=== PATIENT | female | born 1980 | race Caucasian/White ===

== ENCOUNTER 2019-08-24 17:05 | Inpatient (IN) | payer MEDICAID ==
[~2019-08-24] VITALS: Ht 165.1 cm; Wt 81.6 kg
[2019-08-24 19:00] VITALS: BP 123/75
[2019-08-24] MEDS ORDERED: INSU100V13 SQ (20:39)
[2019-08-24] MEDS ORDERED: LIDO:MAALOX 1:1 20 ML SINGLE DOSE. PO PRN (21:15)
[2019-08-24] MEDS: AZTREONAM IV Push 2 GM VIAL. IVP SCH ×2 (21:30→23:24)
[2019-08-24] MEDS: INSULIN GLARGINE SYRINGE. SQ SCH (21:35)
[2019-08-24] MEDS ORDERED: VANCOMYCIN 2 GM in IV NORMAL SALINE 500ML BAG 500 ML IV ONE (22:00)
[2019-08-24] MEDS: IV NORMAL SALINE 1000ML BAG 1,000 ML IV SCH (23:00)
[2019-08-24 23:30] VITALS: BP 152/95
[2019-08-25] MEDS: VANCOMYCIN PER PHARMACY MC PRN ×3 (01:17→14:58)
--- NOTE | 2019-08-25 01:17 | NUR ---
Pharmacy Vancomycin Dosing Note S:Consulted to monitor and dose vancomycin started 08/24/19. O:GLENIS KAUR is a 39 year old F with Sepsis . Height: 5 feet, 5 inches Weight: 74.588636 kg [place] Body Weight: 57.00 Adjusted Body Weight: 64.12 Dosing Weight: Actual Other Antibiotics: AZTREONAM LABS: Last BUN: 23 Last Creatinine: 1.2 Creatinine Clearance: 64 mL/min Last WBC: 9.4 Last Procalcitonin: Tmax (past 24 hours): Microbiology: I/O: Drug Levels: Last level: on at Last dose given 08/24/19 at 2100 Vancomycin Dosing: Loading Dose: 2000 mg x1 Dosing Weight: Actual Target Trough: 15-20 A: Based on: WT AND CRCL P: 1. Begin Vancomycin 1000 mg IV q12h 2. Follow up Trough level on 08/26/19 at 0830 3. Pharmacy will continue to monitor, follow and adjust therapy as needed. JL PATTON RPH, 08/25/19116 Signed: 08/25/19 at 116 by JL PATTON RPH PHA
[2019-08-25 03:20] VITALS: BP 112/70
[2019-08-25] MEDS: ONDANSETRON PF 4 MG/2 ML VIAL. IVP PRN ×3 (03:30→22:40)
[2019-08-25] MEDS: fentaNYL PF VIAL 100 MCG/2 ML VIAL IVP PRN ×3 (03:33→08:27)
[2019-08-25] MEDS: AZTREONAM IV Push 2 GM VIAL. IVP SCH ×4 (05:56→22:29)
[2019-08-25 07:21] VITALS: BP 136/80
[2019-08-25] MEDS: PANTOPRAZOLE 40 MG TABLET.DR. PO SCH (07:30)
[2019-08-25] MEDS ORDERED: DEXTROSE 50% 25 GM / 50ML DISP.SYRIN. IV PRN (09:00)
--- NOTE | 2019-08-25 09:12 | PN ---
DATE: 08/25/2019 SUBJECTIVE: The patient is resting, slightly sitting up in bed, having had recurrent bouts of nausea and vomiting. She also complained of right upper quadrant pain that radiates to the back, although her lower abdominal pain seemed to be much better controlled. PHYSICAL EXAMINATION: GENERAL: When I examined her this morning, she looked somewhat pale. No jaundice, cyanosis, or thyromegaly. No jugular venous distention. No lower limb edema. VITAL SIGNS: Her heart rate was 98, blood pressure was 136/80, temperature was 98.0, respiratory rate was 18, and oxygen saturation was 97%. HEAD, EYES, EARS, NOSE, AND THROAT: Normocephalic and atraumatic. NECK: Supple. HEART: Showed normal first and second heart sounds. No gallop, rub, or murmur. CHEST: Clear to auscultation. No crepitation or rhonchi. ABDOMEN: Distended, soft, and nontender. No guarding or rigidity. No organomegaly. All hernial orifices intact. Bowel sounds normal. NEUROLOGIC: She is awake, alert, and responding appropriately. She moves all extremities without difficulty. LABORATORY DATA: She has no lab work unfortunately ordered. ASSESSMENT AND PLAN: In summary, this is a 39-year-old female patient with type 1 diabetes, was admitted with emphysematous cystitis. We will continue with IV antibiotic and we did consult the Infectious Disease to assist with management. I will consult also the urologist, and we will continue to monitor her blood sugars and adjust insulin as needed. Continue with pain management and antiemetic therapy. HANY MILLER MD DR: SVETLANA/omar JOB#: [id number] / [id number]
--- NOTE | 2019-08-25 09:14 | PDOC ---
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 Rocephin hypotension/syncope UTI - POA 08/24 at [facility] ? pancreatitis with lipase 656 Type 1 Dm Poor dentition Plan Plan of Care Cont Vanc and Aztreonam but adjust dose q8 F/u labs and cults Await urology eval [facility] notes reviewed Thank you D/w Dr. Rivero # [id number] JULIA OH MD Aug 25, 2019 09:14
--- NOTE | 2019-08-25 09:14 | HP ---
ADMIT DATE: HISTORY OF PRESENT ILLNESS: The patient is a 39-year-old female patient who was seen yesterday at [facility] Emergency Room, apparently complaining of pain in her lower abdomen, mostly in the left lower quadrant. Apparently, she is known to have ovarian cyst and according to her, there were plans for her to have hysterectomy; however, she apparently was found to be septic with lactic acid of 2.9, although her total white cell count was normal, has a UTI with more than 40 wbc's and too many bacteria. Her lipase was also found to be high at 656. The CT scan of the abdomen and pelvis showed that she has gas within the urinary bladder with emphysematous cystitis progressed since the prior examination, finding localized along the left lateral bladder wall, circumferential wall thickening is noted with pericystic and inflammatory changes compatible with cystitis. Urology consultation was recommended and the patient was started on IV antibiotic in the form of levofloxacin. SHE IS ALLERGIC TO PENICILLIN AND CEFTRIAXONE. She was also started on vancomycin as well as aztreonam and was transferred to [facility] to consult the Urology team as well as Infectious Disease team. PAST MEDICAL HISTORY: Significant for type 1 diabetes mellitus, on Levemir and NovoLog insulin. She has severe acid reflux, has had before ureteropelvic junction obstruction for which she underwent pyeloplasty. She has also mild cataracts. PAST SURGICAL HISTORY: Significant for cholecystectomy, pyeloplasty, tubal ligation, uterine ablation and also had had a colonoscopy. ALLERGIES: SHE IS ALLERGIC TO PENICILLIN, CEFTRIAXONE, METOCLOPRAMIDE, AND MORPHINE WELL COMPAZINE. MEDICATIONS: She is currently on following medications: She is on Levemir and NovoLog as well as Pepcid. FAMILY HISTORY: She has 6 brothers, 2 older and 3 younger and all healthy. Her father is still alive and has metastatic lung cancer for which she is getting chemotherapy and radiation treatment. Her mother is still alive and has hypertension, hyperlipidemia. SOCIAL HISTORY: She is , has 1 son and 2 daughters. She does not smoke, drink alcohol or use any recreational drugs. She is a traveling registered nurse. REVIEW OF SYSTEMS: The patient denied any blurring of vision, glaucoma. She does have cataract, did not require any surgical intervention, but denied any glaucoma or macular degeneration. Denied any earache, tinnitus or sensorineural deafness. Denied any nosebleeds, stuffy nose or postnasal drip. Denied any sore throat, sore tongue, toothache, hoarseness of voice or difficulty swallowing. Denied any nausea, vomiting, diarrhea or constipation. Denied any hematemesis, melena or hematochezia. Denied any dysuria, frequency or hematuria. She denied any chest pain, shortness of breath, orthopnea or paroxysmal nocturnal dyspnea. PHYSICAL EXAMINATION: GENERAL: On arrival to the Emergency Room, the patient looked well and was clearly in no apparent respiratory distress. No pallor, jaundice, cyanosis or thyromegaly. No jugular venous distention. No limb edema. VITAL SIGNS: Her heart rate was 117, blood pressure was 126/79, temperature was 98, respiratory rate was 20, and oxygen saturation was 99% on room air. HEAD, EYES, EARS, NOSE AND THROAT: Showed normocephalic, atraumatic. NECK: Supple. HEART: Showed normal first and second heart sounds. No gallop or murmur. CHEST: Clear to auscultation. No crepitation or rhonchi. ABDOMEN: Distended, soft with tenderness mostly in the left lower quadrant. There is no guarding or rigidity. No organomegaly. All hernial orifice intact. Bowel sounds normal. NEUROLOGIC: She was awake, alert, responding appropriately. All cranial nerves intact. EXTREMITIES: She moves extremities without difficulty. She ambulates without assistance or assistive devices. LABORATORY DATA: Her lab work showed a white cell count 9400. Her hemoglobin was 12, hematocrit 36, MCV 87 and platelet count of 623,000. Her serum sodium was 133, potassium 4.7, chloride 97, bicarbonate 27, anion gap of 9, BUN 23, creatinine 1.2, estimated GFR was 50 mL per minute. Her glucose was 221. Lactic acid was 2.9, calcium was 9.6, magnesium was 1.9. Total bilirubin, AST, ALT, alkaline phosphatase were slightly elevated. Total protein was 7.9, albumin was 2.7. Her serum lipase was 656. The patient underwent transabdominal and transvaginal sonographic imaging of the pelvis, which showed that the patient has 2.1 cm x 2 cm complex left ovarian cyst progressive, possibly hemorrhagic in etiology. A small uterine fibroid obscured right ovary. A note was made that the hypoechoic focus within the endometrium on the prior exam is not seen on this examination. She did have also CT scan of the abdomen and pelvis, which showed that the patient has gas within the urinary bladder with emphysematous cystitis progressed since the last time. Findings are localized along the left lateral bladder wall, circumferential wall thickening is noted with pericystic and inflammatory changes compatible with cystitis. Therefore, the patient was transferred to [facility] to continue with IV antibiotic. Continue to monitor her blood sugar and adjust her insulin as needed. Consult the Infectious Disease as well as the Urology team and decide on further management accordingly. HAYN MILLER MD DR: SVETLANA/omar JOB#: [id number] / [id number]
[2019-08-25] MEDS: VANCOMYCIN 1 GM in IV NORMAL SALINE 250ML 250 ML IV SCH ×2 (09:19→20:58)
[2019-08-25 09:20] LABS: HEMATOCRIT 36.7 % (36.0-47.0); HEMOGLOBIN 12.1 g/dL (12.0-15.5); RED BLOOD COUNT 4.12 x10^6/uL (3.50-5.40); RED CELL DISTRIBUTION WIDTH 13.2 % (11.5-14.5); WHITE BLOOD COUNT 8.6 x10^3/uL (4.0-11.0)
[2019-08-25 10:04] LABS: CALCIUM 8.8 mg/dL (8.5-10.1); CREATININE 0.7 mg/dL (0.6-1.0); GFR 93.2; POTASSIUM 4.7 mmol/L (3.5-5.1)
[2019-08-25 10:10] LABS: ALBUMIN 2.6 g/dL (3.4-5.0); ALBUMIN/GLOBULIN RATIO 0.6 (1.0-1.7); TOTAL BILIRUBIN 0.2 mg/dL (0.2-1.0); TOTAL PROTEIN 6.7 g/dL (6.4-8.2)
--- NOTE | 2019-08-25 10:57 | CONS ---
DATE OF CONSULTATION: 08/25/2019 LOCATION: The patient is in room #670. REQUESTING PHYSICIAN: Dr. Rivero. REASON FOR CONSULTATION: Pancreatitis. HISTORY OF PRESENT ILLNESS: The patient is a 39-year-old female with a history of type 1 diabetes, does have a history of urinary tract infections as well as complicated left ovarian cyst and is actually scheduled to undergo a hysterectomy. She began to have some pain in her left side. Yesterday, she thought it was more associated with the cyst, so she presented to [facility] for evaluation. She underwent a CT scan of the abdomen and pelvis, so she has some emphysematous changes in her bladder with some gas. She states this was noted prior about 07/14, but had since worsened. About 07/14, she received some oral antibiotics. Her urine collected at [facility] was concerning for urinary tract infection. Additionally, she had a lipase level of 656. She had not been having any fevers or chills, but she did vomit this morning. She feels this is secondary to pain medication. She was given a dose of vancomycin, Levaquin and she was transferred to [facility] where she has been continued on vancomycin and aztreonam has been ordered. Currently, she is sitting upright in bed. Denies any gross fevers, chills or sweats. She has some chronic seasonal allergy type issues. Denies any sore throat. She denies any change in her urine. No blood in her urine. No cramps and diarrhea. Denies any generalized rashes. PAST MEDICAL HISTORY: Positive for type 1 diabetes, history of recurrent urinary tract infections, gastroesophageal reflux disease, and uterine cyst. PAST SURGICAL HISTORY: Positive for cholecystectomy, x 3, uterine ablation, also had ureteropelvic surgery as a child and tubal ligation. REVIEW OF SYSTEMS: Otherwise negative except for what is mentioned above. ALLERGIES: LISTED PENICILLIN, WHICH CAUSED JOHNSTON-MIKAELA SYNDROME. She had tolerated Rocephin, but when the last time she received a dose, she dropped her blood pressure and had a syncopal episode. METOCLOPRAMIDE, MORPHINE, AND PROCHLORPERAZINE ARE ALSO LISTED. SOCIAL HISTORY: No tobacco. She works as a nurse. Denies any ill contacts recently. No pets at home. FAMILY HISTORY: Noncontributory. CT scan reviewed in history of present illness with emphysematous changes. She also had a pelvic sonogram, showed a 2.1 x 2 cm complex left ovarian cyst, possibly hemorrhagic, small uterine fibroid, obscured right ovary. PHYSICAL EXAMINATION: VITAL SIGNS: She is afebrile, pulse 98, respirations 18, blood pressure 136/80, satting 97% on room air. CONSTITUTIONAL: She is alert. She is cooperative. She looks little tired, but she is in no acute distress. HEENT: Pupils are equal and reactive. She had normal conjunctivae. Oral cavity, pharynx, she has poor dentition, otherwise clear. NECK: Supple. No JVD. LUNGS: Decreased in the bases. HEART: S1, S2. ABDOMEN: Mildly obese, soft. Decreased bowel sounds. EXTREMITIES: Without clubbing or cyanosis. No gross edema. SKIN: Warm to touch without signs of generalized rash. NEUROLOGICAL: She is nonfocal and appropriate. LABORATORY VALUES: White count was 9.4, hemoglobin 12.3, platelets of 623 with 64% neutrophils and 28% lymphs. Glucose was 221. Lactic was 2.9. Creatinine was 1.2. AST 25, ALT 19, lipase was 656. Urinalysis concerning for urinary tract infection. IMPRESSION: 1. Emphysematous cystitis. 2. ANTIBIOTIC ALLERGIES, PENICILLIN CAUSED JOHNSTON-MIKAELA, ROCEPHIN CAUSED HYPOTENSION AND SYNCOPE. 3. Urinary tract infection present on admission on 08/24 at [facility]. 4. Questionable pancreatitis with lipase elevation at 656, but no mention on the CAT scan. 5. Type 1 diabetes. 6. Poor dentition. RECOMMENDATIONS: For now, continue the vancomycin as well as aztreonam, but adjust the dose to q.8 hours of the aztreonam. Follow up labs, cultures, await urological evaluation. [facility] notes were reviewed. Discussed with Dr. Rivero. Thank you for allowing me to participate in the patient's care. If you have any questions, please do not hesitate to contact me. JULIA OH MD DR: MEDHAT/omar JOB#: [id number] / [id number]
[2019-08-25 11:04] VITALS: BP 159/97
[2019-08-25] MEDS: HYDROmorphone 2 MG/ML VIAL IVP PRN ×4 (11:08→22:39)
--- NOTE | 2019-08-25 11:34 | PDOC2 ---
CONSULT Date of Consult Date of Consult DATE: 08/25/19 TIME: 11:32 Reason for Consult Reason for Consult: pancreatitis/possible colo-vesical fistula Current Medications Current Medications Current Medications Vancomycin HCl (Vanco Per Pharmacy) 1 each PRN DAILY PRN MC SEE COMMENTS Last administered on 08/25/19at 01:17; Start 08/24/19 at 21:15 Aztreonam (Azactam) 2 gm Q6HRS IVP Last administered on 08/25/19at 05:56; Start 08/24/19 at 21:30; Stop 08/25/19 at 09:04; Status DC Multi-Ingredient Mouthwash/Gargle (Gi Cocktail) 30 ml PRN QID PRN PO heartburn; Start 08/24/19 at 21:15 Pantoprazole Sodium (Protonix) 40 mg DAILYAC PO ; Start 08/25/19 at 07:30 Fentanyl Citrate (Fentanyl 2ml Vial) 50 mcg PRN Q2HR PRN IVP PAIN Last administered on 08/25/19at 08:27; Start 08/24/19 at 21:15 Insulin Glargine (Lantus Syringe) 10 unit QHS SQ Last administered on 08/24/19at 21:35; Start 08/24/19 at 21:00 Vancomycin HCl 2 gm/Sodium Chloride 500 ml @ 250 mls/hr 1X ONCE IV Last administered on 08/24/19at 21:00; Start 08/24/19 at 22:00; Stop 08/24/19 at 23:59; Status DC Vancomycin HCl 1 gm/Sodium Chloride 250 ml @ 250 mls/hr Q12H IV Last ad ministered on 08/25/19at 09:19; Start 08/25/19 at 09:00 Vancomycin HCl (Vancomycin Trough Level) 1 each 1X ONCE MC ; Start 08/26/19 at 08:30; Stop 08/26/19 at 08:31 Sodium Chloride 1,000 ml @ 100 mls/hr Q10H IV Last administered on 08/24/19at 23:00; Start 08/25/19 at 01:00 Ondansetron HCl (Zofran) 4 mg PRN Q6HRS PRN IVP NAUSEA/VOMITING 1ST CHOICE Last administered on 08/25/19at 08:59; Start 08/25/19 at 03:30 Insulin Human Lispro (HumaLOG) 0-9 UNITS TIDWMEALS SQ ; Start 08/25/19 at 12:00 Dextrose (Dextrose 50%-Water Syringe) 12.5 gm PRN Q15MIN PRN IV SEE COMMENTS; Start 08/25/19 at 09:00 Aztreonam (Azactam) 2 gm Q8HRS IVP ; Start 08/25/19 at 14:00 Hydromorphone HCl (Dilaudid) 0.4 mg PRN Q3HRS PRN IVP MODERATE TO SEVERE PAIN Last administered on 08/25/19at 11:08; Start 08/25/19 at 09:15 Active Scripts Active Reported Levemir (Insulin Detemir) 100 Unit/1 Ml Vial 25 Units SQ QHS Allergies Allergies: Coded Allergies: Penicillins (Verified Allergy, Severe, Fonseca-Mati syndrome, 08/24/19) ceftriaxone (Verified Allergy, Severe, 08/24/19) metoclopramide (Verified Allergy, Intermediate, hallucination, 08/24/19) morphine (Verified Allergy, Intermediate, hives, 08/24/19) prochlorperazine (Verified Adverse Reaction, Intermediate, 08/24/19) Vitals VITALS Vital Signs Date Time Temp Pulse Resp B/P (MAP) Pulse Ox O2 Delivery O2 Flow Rate FiO2 08/25/19 11:08 Room Air 08/25/19 11:04 97.6 114 20 159/97 (117) 100 97.6 Labs Labs Laboratory Tests Test 08/24/19 20:50 08/25/19 09:15 Glucose (Fingerstick) 348 mg/dL (70-99) White Blood Count 8.6 x10^3/uL (4.0-11.0) Red Blood Count 4.12 x10^6/uL (3.50-5.40) Hemoglobin 12.1 g/dL (12.0-15.5) Hematocrit 36.7 % (36.0-47.0) Mean Corpuscular Volume 89 fL (79-100) Mean Corpuscular Hemoglobin 29 pg (25-35) Mean Corpuscular Hemoglobin Concent 33 g/dL (31-37) Red Cell Distribution Width 13.2 % (11.5-14.5) Platelet Count 507 x10^3/uL (140-400) Sodium Level 137 mmol/L (136-145) Potassium Level 4.7 mmol/L (3.5-5.1) Chloride Level 102 mmol/L (98-107) Carbon Dioxide Level 25 mmol/L (21-32) Anion Gap 10 (6-14) Blood Urea Nitrogen 14 mg/dL (7-20) Creatinine 0.7 mg/dL (0.6-1.0) Estimated GFR (Cockcroft-Gault) 93.2 BUN/Creatinine Ratio 20 (6-20) Glucose Level 421 mg/dL (70-99) Calcium Level 8.8 mg/dL (8.5-10.1) Total Bilirubin 0.2 mg/dL (0.2-1.0) Aspartate Amino Transf (AST/SGOT) 25 U/L (15-37) Alanine Aminotransferase (ALT/SGPT) 18 U/L (14-59) Alkaline Phosphatase 170 U/L (46-116) Total Protein 6.7 g/dL (6.4-8.2) Albumin 2.6 g/dL (3.4-5.0) Albumin/Globulin Ratio 0.6 (1.0-1.7) Lipase 362 U/L (73-393) Laboratory Tests Test 08/24/19 20:50 08/25/19 09:15 Glucose (Fingerstick) 348 mg/dL (70-99) White Blood Count 8.6 x10^3/uL (4.0-11.0) Red Blood Count 4.12 x10^6/uL (3.50-5.40) Hemoglobin 12.1 g/dL (12.0-15.5) Hematocrit 36.7 % (36.0-47.0) Mean Corpuscular Volume 89 fL (79-100) Mean Corpuscular Hemoglobin 29 pg (25-35) Mean Corpuscular Hemoglobin Concent 33 g/dL (31-37) Red Cell Distribution Width 13.2 % (11.5-14.5) Platelet Count 507 x10^3/uL (140-400) Sodium Level 137 mmol/L (136-145) Potassium Level 4.7 mmol/L (3.5-5.1) Chloride Level 102 mmol/L (98-107) Carbon Dioxide Level 25 mmol/L (21-32) Anion Gap 10 (6-14) Blood Urea Nitrogen 14 mg/dL (7-20) Creatinine 0.7 mg/dL (0.6-1.0) Estimated GFR (Cockcroft-Gault) 93.2 BUN/Creatinine Ratio 20 (6-20) Glucose Level 421 mg/dL (70-99) Calcium Level 8.8 mg/dL (8.5-10.1) Total Bilirubin 0.2 mg/dL (0.2-1.0) Aspartate Amino Transf (AST/SGOT) 25 U/L (15-37) Alanine Aminotransferase (ALT/SGPT) 18 U/L (14-59) Alkaline Phosphatase 170 U/L (46-116) Total Protein 6.7 g/dL (6.4-8.2) Albumin 2.6 g/dL (3.4-5.0) Albumin/Globulin Ratio 0.6 (1.0-1.7) Lipase 362 U/L (73-393) Assessment/Plan Assessment/Plan Pancreatitis- s/p efren, clinically resolved Abnl Ct scan- with dysuria, colovesical fistula possible,. urology consult to further asses. colonoscopy to assess for Crohns, diverticulitis, and/or colon cancer if fistula confirmed. SYLVESTER BRADSHAW MD Aug 25, 2019 11:34
[2019-08-25] MEDS: INSULIN LISPRO 300 UNITS/3 ML VIAL. SQ SCH ×2 (11:52→17:00)
[2019-08-25] MEDS: IV NORMAL SALINE 1000ML BAG 1,000 ML IV SCH ×2 (11:53→21:01)
--- NOTE | 2019-08-25 11:54 | CONS ---
DATE OF CONSULTATION: 08/25/2019 REFERRING PHYSICIAN: Dr. Rivero. REASON FOR CONSULTATION: Pancreatitis and possible colovesical fistula. HISTORY OF PRESENT ILLNESS: A 39-year-old female with past medical history significant for cholecystectomy, , tubal ligation as well as uterine ablation, hemorrhagic cyst and has diabetes who is seen with episode of pancreatitis. Biochemical enzymes were elevated as well most of her pain was suprapubic in nature, subsequently returned to normal. She is a nondrinker, nonsmoker. Prior to cholecystectomy, no abnormalities were noted within the biliary tree or pancreas. She is also noted to have air in the wall of her urinary bladder and she has been passing air with urination for the past week or so. There is no family history of Crohn's, diverticulitis or colon cancer. Denies any change in bowel habits. With ongoing symptoms, she requests additional evaluation. PAST MEDICAL HISTORY: Diabetes, cholecystectomy, , tubal ligation, uterine ablation. MEDICATIONS: Include vancomycin, aztreonam, insulin, pantoprazole. SOCIAL HISTORY: She is nonsmoker, nondrinker. FAMILY HISTORY: Noncontributory. REVIEW OF SYSTEMS: As per records. PHYSICAL EXAMINATION: GENERAL: Reveals a well-nourished, well-developed female who is alert, cooperative, in no acute distress. VITAL SIGNS: Temperature 97.8, pulse 114, respiratory rate 20, blood pressure is 159/97. HEENT: Normocephalic, atraumatic head. Pupils and extraocular muscles are not tested. Sclerae anicteric. NECK: Supple. LUNGS: Clear. CARDIOVASCULAR: Reveals an S1, S2 without S3, S4 or appreciable murmur. ABDOMEN: Reveals a soft abdomen, normal bowel sounds, without appreciable hepatosplenomegaly with multiple surgical incisions being noted and suprapubic tenderness. EXTREMITIES: Reveal no cyanosis, clubbing or edema. LABORATORY STUDIES: Sodium 137, potassium 4.7, chloride 102, bicarbonate 25, BUN 14, creatinine 0.7, glucose 421, calcium 8.8, total bilirubin 0.2, AST of 25, ALT of 18, alkaline phosphatase 170, total protein 6.7, albumin 2.8, lipase of 362 today. Hemoglobin 12.1, hematocrit 36.7, white count 8.8, platelet count 507,000. CT scan reveals emphysematous, inflammation of the urinary bladder as well as possible pancreatitis. IMPRESSION: 1. Pancreatitis, status post cholecystectomy with diabetes, most likely is multifactorial in etiology and apparently has clinically resolved at this time. 2. Possible colovesical fistula with abnormal CT scan and recurrent polymicrobial UTIs. We will recommend Urology consultation for possible cystoscopy, fistula was confirmed and colonoscopy for surgery to assess for diverticulitis, colon cancer, and Crohn's disease will be pursued. SYLVESTER BRADSHAW MD DR: EDGARD/nts JOB#: [id number] / [id number]
[2019-08-25 15:00] VITALS: BP 141/77
[2019-08-25] MEDS: diphenhydrAMINE 50 MG/ML VIAL IVP PRN ×2 (15:29→20:15)
[2019-08-25] MEDS: LACTOBACILLUS RHAMNOSUS GG 1 CAPSULE. PO SCH (21:02)
[2019-08-25] MEDS: INSULIN GLARGINE SYRINGE. SQ SCH (21:04)
[2019-08-25 22:45] VITALS: BP 151/79
[2019-08-26] MEDS: diphenhydrAMINE 50 MG/ML VIAL IVP PRN ×4 (02:56→21:56)
[2019-08-26] MEDS: HYDROmorphone 2 MG/ML VIAL IVP PRN ×5 (03:00→21:51)
[2019-08-26 03:08] VITALS: BP 135/78
[2019-08-26] MEDS: AZTREONAM IV Push 2 GM VIAL. IVP SCH ×3 (05:36→21:58)
[2019-08-26 07:00] VITALS: BP 131/70
--- NOTE | 2019-08-26 07:49 | PDOC ---
Infectious Disease Note Subjective Subjective No F/C but + N/V and left ovary pain Normal BMs and urinating ok No Rash/itch/SOA ROS ROS o/w neg Vital Sign Vital Signs Vital Signs Date Time Temp Pulse Resp B/P (MAP) Pulse Ox O2 Delivery O2 Flow Rate FiO2 08/26/19 07:00 97.7 99 18 131/70 (90) 95 Room Air 97.7 Physical Exam PHYSICAL EXAM CONSTITUTIONAL: She is alert. She is cooperative. She looks little tired still, but she is in no acute distress. HEENT: Pupils are equal and reactive. She had normal conjunctivae. Oral cavity, pharynx, she has poor dentition, otherwise clear. NECK: Supple. No JVD. LUNGS: Decreased in the bases. HEART: S1, S2. ABDOMEN: Mildly obese, soft. Decreased bowel sounds. Tender in LLQ - no guard EXTREMITIES: Without clubbing or cyanosis. No gross edema. SKIN: Warm to touch without signs of generalized rash. NEUROLOGICAL: She is nonfocal and appropriate. Labs Lab Laboratory Tests Test 08/25/19 07:47 08/25/19 09:15 08/25/19 11:42 08/25/19 15:23 Glucose (Fingerstick) 362 mg/dL (70-99) 374 mg/dL (70-99) 169 mg/dL (70-99) White Blood Count 8.6 x10^3/uL (4.0-11.0) Red Blood Count 4.12 x10^6/uL (3.50-5.40) Hemoglobin 12.1 g/dL (12.0-15.5) Hematocrit 36.7 % (36.0-47.0) Mean Corpuscular Volume 89 fL (79-100) Mean Corpuscular Hemoglobin 29 pg (25-35) Mean Corpuscular Hemoglobin Concent 33 g/dL (31-37) Red Cell Distribution Width 13.2 % (11.5-14.5) Platelet Count 507 x10^3/uL (140-400) Sodium Level 137 mmol/L (136-145) Potassium Level 4.7 mmol/L (3.5-5.1) Chloride Level 102 mmol/L (98-107) Carbon Dioxide Level 25 mmol/L (21-32) Anion Gap 10 (6-14) Blood Urea Nitrogen 14 mg/dL (7-20) Creatinine 0.7 mg/dL (0.6-1.0) Estimated GFR (Cockcroft-Gault) 93.2 BUN/Creatinine Ratio 20 (6-20) Glucose Level 421 mg/dL (70-99) Calcium Level 8.8 mg/dL (8.5-10.1) Total Bilirubin 0.2 mg/dL (0.2-1.0) Aspartate Amino Transf (AST/SGOT) 25 U/L (15-37) Alanine Aminotransferase (ALT/SGPT) 18 U/L (14-59) Alkaline Phosphatase 170 U/L (46-116) Total Protein 6.7 g/dL (6.4-8.2) Albumin 2.6 g/dL (3.4-5.0) Albumin/Globulin Ratio 0.6 (1.0-1.7) Lipase 362 U/L (73-393) Test 08/25/19 16:59 08/25/19 20:29 Glucose (Fingerstick) 177 mg/dL (70-99) 323 mg/dL (70-99) Objective Assessment Emphysematous cystitis ? colovesical fistula per GI Abx allergies - PCN - Jad. Rocephin hypotension/syncope UTI - POA 08/[address] [facility] - GNR -d/w [facility] this am ? pancreatitis with lipase 656 - improved 08/25 Type 1 Dm Poor dentition Plan Plan of Care Cont Vanc and Aztreonam but adjust dose q8 Redose Levoflox times one with GNR in urine and uncertain ID F/u labs and cults Await urology eval D/w [facility] this am D/w JULIA Moreno MD Aug 26, 2019 07:49
[2019-08-26] MEDS: IV NORMAL SALINE 1000ML BAG 1,000 ML IV SCH ×3 (08:00→17:00)
[2019-08-26 08:47] LABS: CALCIUM 8.6 mg/dL (8.5-10.1); CREATININE 0.6 mg/dL (0.6-1.0); GFR 111.3; POTASSIUM 4.2 mmol/L (3.5-5.1)
[2019-08-26 08:52] LABS: VANC TR 10.1 mcg/mL (10.0-20.0)
[2019-08-26] MEDS: VANCOMYCIN PER PHARMACY MC PRN ×2 (09:47→09:51)
--- NOTE | 2019-08-26 09:49 | NUR ---
Pharmacy Vancomycin Dosing Note S:Consulted to monitor and dose vancomycin started 08/24/19. O:GLENIS KAUR is a 39 year old F with Sepsis . Height: 5 feet, 5 inches Weight: 82.175449 kg [place] Body Weight: 57.00 Adjusted Body Weight: 65.96 Dosing Weight: Actual Other Antibiotics: AZTREONAM LABS: Last BUN: 14 Last Creatinine: 0.6 Creatinine Clearance: 138 mL/min Last WBC: 8.6 Last Procalcitonin: Tmax (past 24 hours): 98 Microbiology: Pending I/O: 900/ 2 voids Drug Levels: Last Trough level: 10.1 on 08/26/19 at 0830 Last dose given 08/25/19 at 0919 Vancomycin Dosing: Loading Dose: 2000 mg x1 Dosing Weight: Actual Target Trough: 15-20 A: Based on: LEVEL P: 1. Change Vancomycin 1000 mg IV q8H 2. Follow up Trough level NEEDED 3. Pharmacy will continue to monitor, follow and adjust therapy as needed. TRIXIE GRAHAM [facility], 08/26/19 0944
[2019-08-26] MEDS: VANCOMYCIN 1 GM in IV NORMAL SALINE 250ML 250 ML IV SCH ×2 (10:00→17:51)
[2019-08-26] MEDS: ONDANSETRON PF 4 MG/2 ML VIAL. IVP PRN ×3 (10:16→21:54)
[2019-08-26] MEDS: PANTOPRAZOLE 40 MG TABLET.DR. PO SCH (10:17)
[2019-08-26] MEDS: LACTOBACILLUS RHAMNOSUS GG 1 CAPSULE. PO SCH ×2 (10:17→21:57)
[2019-08-26] MEDS: INSULIN LISPRO 300 UNITS/3 ML VIAL. SQ SCH ×3 (10:30→17:58)
[2019-08-26 11:03] VITALS: BP 124/71
--- NOTE | 2019-08-26 11:28 | PDOC ---
G I PROGRESS NOTE Reason for Follow-up abd pain/dysuria Subjective No new complaints Physical Exam Lungs clear CV S1 S2 ABD +BS, soft, + suprapubic tenderness to palpation Review of Relevant I have reviewed the following items katrin (where applicable) has been applied. Labs Laboratory Tests Test 08/24/19 20:50 08/25/19 07:47 08/25/19 09:15 08/25/19 11:42 Glucose (Fingerstick) 348 mg/dL (70-99) 362 mg/dL (70-99) 374 mg/dL (70-99) White Blood Count 8.6 x10^3/uL (4.0-11.0) Red Blood Count 4.12 x10^6/uL (3.50-5.40) Hemoglobin 12.1 g/dL (12.0-15.5) Hematocrit 36.7 % (36.0-47.0) Mean Corpuscular Volume 89 fL (79-100) Mean Corpuscular Hemoglobin 29 pg (25-35) Mean Corpuscular Hemoglobin Concent 33 g/dL (31-37) Red Cell Distribution Width 13.2 % (11.5-14.5) Platelet Count 507 x10^3/uL (140-400) Sodium Level 137 mmol/L (136-145) Potassium Level 4.7 mmol/L (3.5-5.1) Chloride Level 102 mmol/L (98-107) Carbon Dioxide Level 25 mmol/L (21-32) Anion Gap 10 (6-14) Blood Urea Nitrogen 14 mg/dL (7-20) Creatinine 0.7 mg/dL (0.6-1.0) Estimated GFR (Cockcroft-Gault) 93.2 BUN/Creatinine Ratio 20 (6-20) Glucose Level 421 mg/dL (70-99) Calcium Level 8.8 mg/dL (8.5-10.1) Total Bilirubin 0.2 mg/dL (0.2-1.0) Aspartate Amino Transf (AST/SGOT) 25 U/L (15-37) Alanine Aminotransferase (ALT/SGPT) 18 U/L (14-59) Alkaline Phosphatase 170 U/L (46-116) Total Protein 6.7 g/dL (6.4-8.2) Albumin 2.6 g/dL (3.4-5.0) Albumin/Globulin Ratio 0.6 (1.0-1.7) Lipase 362 U/L (73-393) Test 08/25/19 15:23 08/25/19 16:59 08/25/19 20:29 08/26/19 08:18 Glucose (Fingerstick) 169 mg/dL (70-99) 177 mg/dL (70-99) 323 mg/dL (70-99) 279 mg/dL (70-99) Test 08/26/19 08:32 Sodium Level 138 mmol/L (136-145) Potassium Level 4.2 mmol/L (3.5-5.1) Chloride Level 103 mmol/L (98-107) Carbon Dioxide Level 25 mmol/L (21-32) Anion Gap 10 (6-14) Blood Urea Nitrogen 8 mg/dL (7-20) Creatinine 0.6 mg/dL (0.6-1.0) Estimated GFR (Cockcroft-Gault) 111.3 Glucose Level 283 mg/dL (70-99) Calcium Level 8.6 mg/dL (8.5-10.1) Vancomycin Level Trough 10.1 mcg/mL (10.0-20.0) Vancomycin Last Dose Date 08/25/19 Vancomycin Last Dose Time 2100 Laboratory Tests Test 08/25/19 11:42 08/25/19 15:23 08/25/19 16:59 08/25/19 20:29 Glucose (Fingerstick) 374 mg/dL (70-99) 169 mg/dL (70-99) 177 mg/dL (70-99) 323 mg/dL (70-99) Test 08/26/19 08:18 08/26/19 08:32 Glucose (Fingerstick) 279 mg/dL (70-99) Sodium Level 138 mmol/L (136-145) Potassium Level 4.2 mmol/L (3.5-5.1) Chloride Level 103 mmol/L (98-107) Carbon Dioxide Level 25 mmol/L (21-32) Anion Gap 10 (6-14) Blood Urea Nitrogen 8 mg/dL (7-20) Creatinine 0.6 mg/dL (0.6-1.0) Estimated GFR (Cockcroft-Gault) 111.3 Glucose Level 283 mg/dL (70-99) Calcium Level 8.6 mg/dL (8.5-10.1) Vancomycin Level Trough 10.1 mcg/mL (10.0-20.0) Vancomycin Last Dose Date 08/25/19 Vancomycin Last Dose Time 2100 Medications Current Medications Vancomycin HCl (Vanco Per Pharmacy) 1 each PRN DAILY PRN MC SEE COMMENTS Last administered on 08/26/19 09:51; Start 08/24/19 at 21:15 Aztreonam (Azactam) 2 gm Q6HRS IVP Last administered on 08/25/19 05:56; Start 08/24/19 at 21:30; Stop 08/25/19 at 09:04; Status DC Multi-Ingredient Mouthwash/Gargle (Gi Cocktail) 30 ml PRN QID PRN PO heartburn; Start 08/24/19 at 21:15 Pantoprazole Sodium (Protonix) 40 mg DAILYAC PO Last administered on 08/26/19 10:17; Start 08/25/19 at 07:30 Fentanyl Citrate (Fentanyl 2ml Vial) 50 mcg PRN Q2HR PRN IVP PAIN Last administered on 08/25/19 08:27; Start 08/24/19 at 21:15 Insulin Glargine (Lantus Syringe) 10 unit QHS SQ Last administered on 08/25/19 21:04; Start 08/24/19 at 21:00 Vancomycin HCl 2 gm/Sodium Chloride 500 ml @ 250 mls/hr 1X ONCE IV Last administered on 08/24/19 21:00; Start 08/24/19 at 22:00; Stop 08/24/19 at 23:59; Status DC Vancomycin HCl 1 gm/Sodium Chloride 250 ml @ 250 mls/hr Q12H IV Last administered on 08/25/19 20:58; Start 08/25/19 at 09:00; Stop 08/26/19 at 09:41; Status DC Vancomycin HCl (Vancomycin Trough Level) 1 each 1X ONCE MC Last administered on 08/26/19 08:30; Start 08/26/19 at 08:30; Stop 08/26/19 at 08:31; Status DC Sodium Chloride 1,000 ml @ 100 mls/hr Q10H IV Last administered on 08/26/19 10:15; Start 08/25/19 at 01:00 Ondansetron HCl (Zofran) 4 mg PRN Q6HRS PRN IVP NAUSEA/VOMITING 1ST CHOICE Last administered on 08/26/19 10:16; Start 08/25/19 at 03:30 Insulin Human Lispro (HumaLOG) 0-9 UNITS TIDWMEALS SQ Last administered on 08/26/19at 10:30; Start 08/25/19 at 12:00 Dextrose (Dextrose 50%-Water Syringe) 12.5 gm PRN Q15MIN PRN IV SEE COMMENTS; Start 08/25/19 at 09:00 Aztreonam (Azactam) 2 gm Q8HRS IVP Last administered on 08/26/19 05:36; Start 08/25/19 at 14:00 Hydromorphone HCl (Dilaudid) 0.4 mg PRN Q3HRS PRN IVP MODERATE TO SEVERE PAIN Last administered on 08/26/19 10:16; Start 08/25/19 at 09:15 Lactobacillus Rhamnosus (Culturelle) 1 cap BID PO Last administered on at 10:17; Start 08/25/19 at 21:00 Diphenhydramine HCl (Benadryl) 25 mg PRN Q6HRS PRN IVP ITCHING Last administered on 08/26/19 10:16; Start 08/25/19 at 14:30 Sodium Chloride 1,000 ml @ 75 mls/hr [id number] IV ; Start 08/26/19 at 08:00 Levofloxacin/ Dextrose 100 ml @ 100 mls/hr 1X ONCE IV Last administered on 08/26/19at 10:20; Start 08/26/19 at 08:30; Stop 08/26/19 at 09:29; Status DC Vancomycin HCl 1 gm/Sodium Chloride 250 ml @ 250 mls/hr Q8H IV ; Start 08/26/19 at 10:00 Active Scripts Active Reported Levemir (Insulin Detemir) 100 Unit/1 Ml Vial 25 Units SQ QHS Vitals/I & O Vital Sign - Last 24 Hours 08/25/19 08/25/19 08/25/19 08/25/19 11:38 14:20 14:50 15:00 Temp 97.7 97.7 Pulse 111 Resp 20 B/P (MAP) 141/77 (98) Pulse Ox 99 O2 Delivery Room Air Room Air Room Air Room Air 08/25/19 08/25/19 08/26/19 08/26/19 19:10 22:45 03:00 03:08 Temp 97.8 97.9 97.8 97.9 Pulse 104 101 Resp 20 20 B/P (MAP) 151/79 (103) 135/78 (97) Pulse Ox 96 99 O2 Delivery Room Air Room Air Room Air Room Air 08/26/19 08/26/19 08/26/19 07:00 10:16 11:03 Temp 97.7 98.3 97.7 98.3 Pulse 99 101 Resp 18 18 B/P (MAP) 131/70 (90) 124/71 (88) Pulse Ox 95 95 98 O2 Delivery Room Air Room Air Room Air Intake and Output 08/25/19 08/25/19 08/26/19 14:59 22:59 06:59 Intake Total 300 ml 250 ml 350 ml Balance 300 ml 250 ml 350 ml Problem List [address]nl Ct scan- with pneumaturia, possible colo-vesical fistula, await urology input, continue with antibiotics SYLVESTER BRADSHAW MD Aug 26, 2019 11:27
--- NOTE | 2019-08-26 12:06 | PN ---
DATE: 08/26/2019 SUBJECTIVE: The patient is resting, slightly propped up in bed, in no apparent respiratory distress. She continued to have nausea and vomiting. Her pain is apparently well controlled. PHYSICAL EXAMINATION: GENERAL: When I examined her this morning, she looked somewhat pale, but no jaundice, cyanosis or thyromegaly. No jugular venous distention. No limb edema. VITAL SIGNS: Her heart rate was 99, blood pressure was 131/70, temperature was 97.7, respiratory rate was 18, and oxygen saturation was 95%. HEAD, EYES, EARS, NOSE AND THROAT: Showed normocephalic, atraumatic. NECK: Supple. HEART: Showed normal first and second heart sounds. No gallop or murmur. CHEST: Clear to auscultation. No crepitation or rhonchi. ABDOMEN: Distended, soft, and nontender. NEUROLOGIC: She is awake, alert, and responding appropriately. All cranial nerves intact. She moves extremities without difficulty. Her intake over the last 24 hours was 500. No output was recorded. LABORATORY DATA: As of yesterday, her white cell count was 8,600, hemoglobin 12, hematocrit 36, MCV 89, and platelet count of 507,000. Serum sodium 137, potassium 4.7, chloride 102, bicarbonate 25, anion gap of 10, BUN 14, creatinine 0.7, estimated GFR was 93 mL per minute. Her glucose was high at 421. Her total protein was 6.7, albumin was 2.6. Serum lipase is down to 362. ASSESSMENT: 1. Acute pancreatitis, has resolved. 2. 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 3. Type 1 diabetes, reasonably controlled. 4. Recurrent bouts of nausea, vomiting secondary to be perhaps the antibiotic and/or narcotic. PLAN: To continue with IV antibiotic for now. She continues to be on vancomycin as well as aztreonam. Continue with pain management in the form of hydromorphone. Continue to monitor her blood sugar and adjust insulin as needed. I will start her on IV fluid and await the urology evaluation. HANY MILLER MD DR: SVETLANA/omar JOB#: [id number] / [id number]
[2019-08-26 15:34] VITALS: BP 149/79
[2019-08-26 19:32] VITALS: BP 150/87
[2019-08-26] MEDS: INSULIN GLARGINE SYRINGE. SQ SCH (22:06)
[2019-08-26 23:27] VITALS: BP 120/49
[2019-08-27] MEDS: VANCOMYCIN 1 GM in IV NORMAL SALINE 250ML 250 ML IV SCH ×3 (02:00→18:01)
[2019-08-27] MEDS: IV NORMAL SALINE 1000ML BAG 1,000 ML IV SCH ×3 (02:05→10:40)
[2019-08-27 03:16] VITALS: BP 161/92
[2019-08-27] MEDS: HYDROmorphone 2 MG/ML VIAL IVP PRN ×5 (03:26→22:58)
[2019-08-27] MEDS: ONDANSETRON PF 4 MG/2 ML VIAL. IVP PRN ×3 (04:15→18:11)
[2019-08-27] MEDS: diphenhydrAMINE 50 MG/ML VIAL IVP PRN ×3 (04:15→18:13)
[2019-08-27] MEDS: AZTREONAM IV Push 2 GM VIAL. IVP SCH ×3 (06:13→22:54)
[2019-08-27 07:46] VITALS: BP 154/88
--- NOTE | 2019-08-27 08:44 | PN ---
DATE: 08/27/2019 SUBJECTIVE: The patient is resting, slightly propped up in bed, in no apparent distress. She is awake, alert. On questioning her, denied any further episodes of nausea and vomiting. The abdominal pain is well controlled. Denied any chills, rigors or fever. The nursing staff did not voice any concerns that she generally has an uneventful night. Unfortunately, we have lost our Urology services here. PHYSICAL EXAMINATION: GENERAL: When I examined her, she looked pale, but no jaundice, cyanosis or thyromegaly. No jugular venous distension. No lower limb edema. VITAL SIGNS: Her heart rate was 97, blood pressure 154/85, temperature was 97.8, respiratory rate was 16, and oxygen saturation was 96%. HEAD, EYES, EARS, NOSE AND THROAT: Showed normocephalic, atraumatic. NECK: Supple. HEART: Showed normal first and second heart sounds. No gallop, rub or murmur. CHEST: Clear to auscultation. No crepitation or rhonchi. ABDOMEN: Distended, soft, nontender. No guarding or rigidity. No organomegaly. All hernial orifices intact. Bowel sounds normal. NEUROLOGIC: She is awake, alert, responding appropriately. All her cranial nerves intact. She moves extremities without difficulty. She ambulates without assistance or assistive devices. Her intake and output were incompletely recorded. LABORATORY DATA: Her lab work as of yesterday showed a white cell count of 8600, hemoglobin 12, hematocrit 36, MCV 89, and platelet count of 507,000. Her chemistry showed a serum sodium 138, potassium 4.2, chloride 103, bicarbonate 25, anion gap of 10, BUN 8, creatinine 0.6, estimated GFR was 111, glucose was 283 and calcium was 8.6. ASSESSMENT: 1. Emphysematous cystitis, questionable colovesical fistula. 2. Urinary tract infection present on admission to [facility]. She grew gram-negative rods in her urine. Pancreatitis has resolved. 3. Type 1 diabetes mellitus seems to be well controlled. PLAN: To continue with vancomycin and aztreonam. She has received another dose of Lovenox yesterday. I will discuss with the skill training program coordinator and Infectious Disease whether it is necessary for her to be investigated by urologist now given it is already a weekend and whether we should continue with IV antibiotic for now and refer her for investigation by urologist as an outpatient. Her blood cultures at [facility] were negative; however, her urine culture has grown more than 100,000 colony forming units per mL of gram-negative rods. The identification and sensitivity is still pending. HANY MILLER MD DR: SVETLANA/omar JOB#: [id number] / [id number]
[2019-08-27 09:03] LABS: BASO % 1 % (0-3); EOS # 0.1 x10^3/uL (0.0-0.7); EOS % 2 % (0-3); HEMATOCRIT 34.4 % (36.0-47.0); HEMOGLOBIN 11.4 g/dL (12.0-15.5); LYMPH # 1.9 x10^3/uL (1.0-4.8); LYMPH % 29 % (24-48); MEAN CORPUSCULAR HEMOGLOBIN 29 pg (25-35); MEAN CORPUSCULAR HGB CONC 33 g/dL (31-37); MEAN CORPUSCULAR VOLUME 88 fL (79-100); MONO # 0.3 x10^3/uL (0.0-1.1); MONO % 4 % (0-9); NEUT # 4.4 x10^3/uL (1.8-7.7); NEUT % 64 % (31-73); PLATELET COUNT 441 x10^3/uL (140-400); RED CELL DISTRIBUTION WIDTH 13.3 % (11.5-14.5); WHITE BLOOD COUNT 6.8 x10^3/uL (4.0-11.0)
[2019-08-27 09:15] LABS: CALCIUM 8.9 mg/dL (8.5-10.1); CREATININE 0.6 mg/dL (0.6-1.0); GFR 111.3; POTASSIUM 3.8 mmol/L (3.5-5.1)
[2019-08-27] MEDS: fentaNYL PF VIAL 100 MCG/2 ML VIAL IVP PRN (09:41)
[2019-08-27] MEDS: PANTOPRAZOLE 40 MG TABLET.DR. PO SCH (09:43)
[2019-08-27] MEDS: LACTOBACILLUS RHAMNOSUS GG 1 CAPSULE. PO SCH ×2 (09:44→22:53)
[2019-08-27] MEDS: INSULIN LISPRO 300 UNITS/3 ML VIAL. SQ SCH ×3 (09:54→17:00)
--- NOTE | 2019-08-27 10:33 | PDOC ---
Infectious Disease Note Subjective Subjective ate about half her breakfast Some dysuria an nausea Denies F/C/S/aches/diarrhea ROS ROS per HPI Vital Sign Vital Signs Vital Signs Date Time Temp Pulse Resp B/P (MAP) Pulse Ox O2 Delivery O2 Flow Rate FiO2 08/27/19 09:41 96 Room Air 08/27/19 07:46 97.8 97 16 154/88 (110) 97.8 Physical Exam PHYSICAL EXAM GENERAL: Propped up in bed, alert, NAD HEENT: Pupils are equal and reactive. She had normal conjunctivae. Oral cavity, pharynx, she has poor dentition, otherwise clear. NECK: Supple. No JVD. LUNGS: Decreased in the bases. HEART: S1, S2. ABDOMEN: Mildly obese, soft, + BS, no guarding EXTREMITIES: Without clubbing or cyanosis. No gross edema. SKIN: Warm to touch without signs of generalized rash. NEUROLOGICAL: Nonfocal and appropriate. Labs Lab Laboratory Tests Test 08/26/19 11:25 08/26/19 16:49 08/26/19 20:24 08/27/19 07:18 Glucose (Fingerstick) 178 mg/dL (70-99) 214 mg/dL (70-99) 156 mg/dL (70-99) 175 mg/dL (70-99) Test 08/27/19 08:50 White Blood Count 6.8 x10^3/uL (4.0-11.0) Red Blood Count 3.90 x10^6/uL (3.50-5.40) Hemoglobin 11.4 g/dL (12.0-15.5) Hematocrit 34.4 % (36.0-47.0) Mean Corpuscular Volume 88 fL (79-100) Mean Corpuscular Hemoglobin 29 pg (25-35) Mean Corpuscular Hemoglobin Concent 33 g/dL (31-37) Red Cell Distribution Width 13.3 % (11.5-14.5) Platelet Count 441 x10^3/uL (140-400) Neutrophils (%) (Auto) 64 % (31-73) Lymphocytes (%) (Auto) 29 % (24-48) Monocytes (%) (Auto) 4 % (0-9) Eosinophils (%) (Auto) 2 % (0-3) Basophils (%) (Auto) 1 % (0-3) Neutrophils # (Auto) 4.4 x10^3/uL (1.8-7.7) Lymphocytes # (Auto) 1.9 x10^3/uL (1.0-4.8) Monocytes # (Auto) 0.3 x10^3/uL (0.0-1.1) Eosinophils # (Auto) 0.1 x10^3/uL (0.0-0.7) Basophils # (Auto) 0.0 x10^3/uL (0.0-0.2) Sodium Level 139 mmol/L (136-145) Potassium Level 3.8 mmol/L (3.5-5.1) Chloride Level 106 mmol/L (98-107) Carbon Dioxide Level 25 mmol/L (21-32) Anion Gap 8 (6-14) Blood Urea Nitrogen 8 mg/dL (7-20) Creatinine 0.6 mg/dL (0.6-1.0) Estimated GFR (Cockcroft-Gault) 111.3 Glucose Level 206 mg/dL (70-99) Calcium Level 8.9 mg/dL (8.5-10.1) Micro 08/24 ([facility]) URINE CULT RES 1 Preliminary Gram negative rods Greater than 100,000 colony forming units per mL 08/24. ([facility]) BC neg after 2 days Objective Assessment Emphysematous cystitis ? colovesical fistula per GI Abx allergies - PCN - Raymundo-Mati. Rocephin hypotension/syncope UTI - POA 08/24 at [facility] - GNR ? pancreatitis with lipase 656 - improved 08/25 Type 1 DM Poor dentition Plan Plan of Care Cont Vanc and Aztreonam Last dose Levoflox with GNR in urine and uncertain ID, 08/26 F/u labs and cults No longer have urology service D/w nursing Notified blood cultures from [facility] now shows GPC in chains (1 of 4 bottles). Continue current abx Attending Co-Sign The patient was seen and interviewed as well as examined at the bedside. The chart was reviewed. The case was discussed. Agree with the plan of care. ELLYN DODGE APRN Aug 27, 2019 10:33 QUINCY MENON MD Aug 27, 2019 13:41
[2019-08-27 11:00] VITALS: BP 150/81
--- NOTE | 2019-08-27 11:10 | NUR ---
Received call from [facility]up[facility] painter, report of gram positive cocci in chains in one of four bottles, two sets were drawn. Reported to Bailee in ID and Mat, admitting doctor.
[2019-08-27] MEDS: VANCOMYCIN PER PHARMACY MC PRN (13:11)
[2019-08-27 15:00] VITALS: BP 144/86
[2019-08-27 19:52] VITALS: BP 157/91
[2019-08-27] MEDS: INSULIN GLARGINE SYRINGE. SQ SCH (23:00)
[2019-08-27 23:09] VITALS: BP 158/80
[2019-08-28] MEDS: ONDANSETRON PF 4 MG/2 ML VIAL. IVP PRN ×4 (01:30→21:43)
[2019-08-28] MEDS: diphenhydrAMINE 50 MG/ML VIAL IVP PRN ×4 (01:30→21:43)
[2019-08-28] MEDS: IV NORMAL SALINE 1000ML BAG 1,000 ML IV SCH ×2 (01:35→12:23)
[2019-08-28] MEDS: HYDROmorphone 2 MG/ML VIAL IVP PRN ×7 (01:40→21:48)
[2019-08-28] MEDS: VANCOMYCIN 1 GM in IV NORMAL SALINE 250ML 250 ML IV SCH ×3 (02:06→17:25)
[2019-08-28 03:34] VITALS: BP 133/72
[2019-08-28 05:06] LABS: HEMATOCRIT 27.9 % (36.0-47.0); HEMOGLOBIN 9.2 g/dL (12.0-15.5); RED BLOOD COUNT 3.14 x10^6/uL (3.50-5.40); RED CELL DISTRIBUTION WIDTH 13.3 % (11.5-14.5)
[2019-08-28 05:26] LABS: ALBUMIN/GLOBULIN RATIO 0.5 (1.0-1.7); CALCIUM 8.2 mg/dL (8.5-10.1); CREATININE 0.8 mg/dL (0.6-1.0); GFR 79.9; POTASSIUM 3.7 mmol/L (3.5-5.1); TOTAL BILIRUBIN 0.1 mg/dL (0.2-1.0); TOTAL PROTEIN 5.7 g/dL (6.4-8.2)
[2019-08-28] MEDS: AZTREONAM IV Push 2 GM VIAL. IVP SCH ×3 (06:07→20:06)
[2019-08-28 07:41] VITALS: BP 136/82
--- NOTE | 2019-08-28 08:59 | PN ---
DATE: 08/28/2019 SUBJECTIVE: The patient is resting, slightly propped up in bed, no apparent distress. She continues to complain of nausea whenever she gets her antibiotic. Her urine culture has grown more than 100,000 colony forming units per mL of gram-negative rods identified as Klebsiella pneumoniae sensitive to Levaquin, ciprofloxacin as well as all the cephalosporins, Augmentin. PHYSICAL EXAMINATION: GENERAL: When I examined her this morning, she looked well, slightly pale, but no jaundice, cyanosis or thyromegaly. No jugular venous distention. No limb edema. VITAL SIGNS: Her heart rate was 100, blood pressure was 136/82, temperature was 97.6, respiratory rate was 18 and oxygen saturation was 96%. The rest of clinical exam stable, has not really changed. Her intake was 1150, output was 630. LABORATORY DATA: As of this morning, her white cell count was 8000, hemoglobin 9, hematocrit 27, MCV 89 and platelet count 353,000. Her chemistry showed a serum sodium 139, potassium 3.7, chloride 106, bicarbonate 25, anion gap of 8, BUN 8, creatinine 0.8, estimated GFR was 79 mL per minute. Her blood glucose was 322, calcium was 8.1. Total bilirubin, AST, ALT were normal. Alkaline phosphatase slightly elevated. Total protein was 5.7, albumin was 2. Tox screen showed vancomycin trough level was 10. ASSESSMENT: In summary, this is a 39-year-old female patient with: 1. 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 2. Urinary tract infection present on admission to [facility]. She did grow more than 100,000 colony forming units per mL of gram-negative rods identified as Klebsiella pneumoniae, sensitive to cephalosporins and quinolones. 3. Pancreatitis that has resolved. 4. Type 1 diabetes mellitus, seems to be reasonably controlled. PLAN: My plan is to discontinue the vancomycin at this time and start her on levofloxacin. I do not see any reason for transferring her to another hospital today. I will discuss with the Infectious Disease specialist, just continue with oral antibiotic to finish the treatment as an outpatient, and we will arrange for her to have Urology consult as an outpatient. HANY MILLER MD DR: SVETLANA/omar JOB#: [id number] / [id number]
[2019-08-28] MEDS: PANTOPRAZOLE 40 MG TABLET.DR. PO SCH (09:03)
[2019-08-28] MEDS: LACTOBACILLUS RHAMNOSUS GG 1 CAPSULE. PO SCH ×2 (09:03→20:05)
[2019-08-28] MEDS: INSULIN LISPRO 300 UNITS/3 ML VIAL. SQ SCH ×3 (09:15→17:00)
--- NOTE | 2019-08-28 11:33 | PDOC ---
Infectious Disease Note Subjective Subjective Feeling about the same Urine cloudy, + gas No F/C/S Vital Sign Vital Signs Vital Signs Date Time Temp Pulse Resp B/P (MAP) Pulse Ox O2 Delivery O2 Flow Rate FiO2 08/28/19 08:00 Room Air 08/28/19 07:41 97.6 100 18 136/82 (100) 96 97.6 Physical Exam PHYSICAL EXAM GENERAL: Propped up in bed, alert, NAD HEENT: Oral cavity, pharynx, clear, poor dentition NECK: Supple. No JVD. LUNGS: Clear HEART: S1, S2. ABDOMEN: Mildly obese, soft, + BS, no guarding EXTREMITIES: No gross edema. SKIN: Warm to touch without signs of generalized rash. NEUROLOGICAL: Alert and appropriate. Labs Lab Laboratory Tests Test 08/27/19 16:31 08/27/19 21:39 08/28/19 04:35 08/28/19 07:16 Glucose (Fingerstick) 142 mg/dL (70-99) 220 mg/dL (70-99) 270 mg/dL (70-99) White Blood Count 8.0 x10^3/uL (4.0-11.0) Red Blood Count 3.14 x10^6/uL (3.50-5.40) Hemoglobin 9.2 g/dL (12.0-15.5) Hematocrit 27.9 % (36.0-47.0) Mean Corpuscular Volume 89 fL (79-100) Mean Corpuscular Hemoglobin 29 pg (25-35) Mean Corpuscular Hemoglobin Concent 33 g/dL (31-37) Red Cell Distribution Width 13.3 % (11.5-14.5) Platelet Count 353 x10^3/uL (140-400) Sodium Level 139 mmol/L (136-145) Potassium Level 3.7 mmol/L (3.5-5.1) Chloride Level 106 mmol/L (98-107) Carbon Dioxide Level 25 mmol/L (21-32) Anion Gap 8 (6-14) Blood Urea Nitrogen 8 mg/dL (7-20) Creatinine 0.8 mg/dL (0.6-1.0) Estimated GFR (Cockcroft-Gault) 79.9 BUN/Creatinine Ratio 10 (6-20) Glucose Level 322 mg/dL (70-99) Calcium Level 8.2 mg/dL (8.5-10.1) Total Bilirubin 0.1 mg/dL (0.2-1.0) Aspartate Amino Transf (AST/SGOT) 76 U/L (15-37) Alanine Aminotransferase (ALT/SGPT) 33 U/L (14-59) Alkaline Phosphatase 119 U/L (46-116) Total Protein 5.7 g/dL (6.4-8.2) Albumin 2.0 g/dL (3.4-5.0) Albumin/Globulin Ratio 0.5 (1.0-1.7) Test 08/28/19 10:49 Glucose (Fingerstick) 189 mg/dL (70-99) Micro 08/24 ([facility]) URINE CULT RES 1 Final Gram negative rods Klebsiella pneumoniae Greater than 100,000 colony forming units per mL MICS are expressed in micrograms per mL Antibiotic RSLT#1 Amoxicillin/Clavulanic Acid S<=2 Ampicillin R =R Cefepime S<=0.12 Ceftriaxone S<=0.25 Cefuroxime S<=1 Ciprofloxacin S<=0.25 Ertapenem S<=0.12 Gentamicin S<=1 Imipenem S<=0.25 Levofloxacin S<=0.12 Meropenem S<=0.25 Nitrofurantoin S =32 Piperacillin/Tazobactam S<=4 Tetracycline S<=1 Tobramycin S<=1 Trimethoprim/Sulfa S<=20 08/24. BLOOD CULTURE Final GRAM POSITIVE COCCI IN CHAINS SEEN IN 1 OF 4 BOTTLES; 2 SETS WERE DRAWN; RESULTS WERE CALLED TO KAVITHA SELBY ON 6S AT THE [facility]; 08/27/19 @ 1106 BY [employer]. THE BLOOD CULTURES HAVE BEEN SENT TO [facility] FOR FURTHER WORKUP. AMMENDED REPORT: GRAM POSITIVE COCCI IN CHAINS SEEN IN 2 OF 4 BOTTLES; GRAM POSITIVE DIPLOCOCCI SEEN IN 1 OF THE 4 BOTTLES; 2 SETS WERE DRAWN; RESULTS WERE CALLED TO HOSSEIN MOREJON ON 6S AT THE [facility]; 08/27/19 @ 1410 BY [employer] AT. THE BLOOD CULTURES HAVE BEEN SENT TO [facility] FOR FURTHER WORKUP. THIS IS THE SECOND BOTTLE OF THE SAME SET. Objective Assessment Emphysematous cystitis ? colovesical fistula per GI Bacteremia, GPC in chains & gram positive diplococci from 08/24 ([facility]). ID pending Abx allergies - PCN - Jad. Rocephin hypotension/syncope UTI - POA 08/24 at [facility] - Klebsiella (R amp) ? pancreatitis with lipase 656 - improved 08/25 Type 1 DM Poor dentition Plan Plan of Care Vanc and Aztreonam continue Levaquin F/u labs and cults Probiotics No longer have urology service Consider transfer D/w Dr. Rivero Attending Co-Sign The patient was seen and interviewed as well as examined at the bedside. The chart was reviewed. The case was discussed. Agree with the plan of care. ELLYN DODGE APRN Aug 28, 2019 11:33 QUINCY MENON MD Aug 29, 2019 11:12
[2019-08-28 11:49] VITALS: BP 153/89
--- NOTE | 2019-08-28 14:51 | PDOC ---
G I PROGRESS NOTE Reason for Follow-up Monon-vesical fistula Subjective Pneumaturia persists/polymicrobial UC noted Physical Exam Lungs clear CV S1 S2 ABD +BS, soft, nontender Review of Relevant I have reviewed the following items katrin (where applicable) has been applied. Labs Laboratory Tests Test 08/26/19 16:49 08/26/19 20:24 08/27/19 07:18 08/27/19 08:50 Glucose (Fingerstick) 214 mg/dL (70-99) 156 mg/dL (70-99) 175 mg/dL (70-99) White Blood Count 6.8 x10^3/uL (4.0-11.0) Red Blood Count 3.90 x10^6/uL (3.50-5.40) Hemoglobin 11.4 g/dL (12.0-15.5) Hematocrit 34.4 % (36.0-47.0) Mean Corpuscular Volume 88 fL (79-100) Mean Corpuscular Hemoglobin 29 pg (25-35) Mean Corpuscular Hemoglobin Concent 33 g/dL (31-37) Red Cell Distribution Width 13.3 % (11.5-14.5) Platelet Count 441 x10^3/uL (140-400) Neutrophils (%) (Auto) 64 % (31-73) Lymphocytes (%) (Auto) 29 % (24-48) Monocytes (%) (Auto) 4 % (0-9) Eosinophils (%) (Auto) 2 % (0-3) Basophils (%) (Auto) 1 % (0-3) Neutrophils # (Auto) 4.4 x10^3/uL (1.8-7.7) Lymphocytes # (Auto) 1.9 x10^3/uL (1.0-4.8) Monocytes # (Auto) 0.3 x10^3/uL (0.0-1.1) Eosinophils # (Auto) 0.1 x10^3/uL (0.0-0.7) Basophils # (Auto) 0.0 x10^3/uL (0.0-0.2) Sodium Level 139 mmol/L (136-145) Potassium Level 3.8 mmol/L (3.5-5.1) Chloride Level 106 mmol/L (98-107) Carbon Dioxide Level 25 mmol/L (21-32) Anion Gap 8 (6-14) Blood Urea Nitrogen 8 mg/dL (7-20) Creatinine 0.6 mg/dL (0.6-1.0) Estimated GFR (Cockcroft-Gault) 111.3 Glucose Level 206 mg/dL (70-99) Calcium Level 8.9 mg/dL (8.5-10.1) Test 08/27/19 10:46 08/27/19 16:31 08/27/19 21:39 08/28/19 04:35 Glucose (Fingerstick) 208 mg/dL (70-99) 142 mg/dL (70-99) 220 mg/dL (70-99) White Blood Count 8.0 x10^3/uL (4.0-11.0) Red Blood Count 3.14 x10^6/uL (3.50-5.40) Hemoglobin 9.2 g/dL (12.0-15.5) Hematocrit 27.9 % (36.0-47.0) Mean Corpuscular Volume 89 fL (79-100) Mean Corpuscular Hemoglobin 29 pg (25-35) Mean Corpuscular Hemoglobin Concent 33 g/dL (31-37) Red Cell Distribution Width 13.3 % (11.5-14.5) Platelet Count 353 x10^3/uL (140-400) Sodium Level 139 mmol/L (136-145) Potassium Level 3.7 mmol/L (3.5-5.1) Chloride Level 106 mmol/L (98-107) Carbon Dioxide Level 25 mmol/L (21-32) Anion Gap 8 (6-14) Blood Urea Nitrogen 8 mg/dL (7-20) Creatinine 0.8 mg/dL (0.6-1.0) Estimated GFR (Cockcroft-Gault) 79.9 BUN/Creatinine Ratio 10 (6-20) Glucose Level 322 mg/dL (70-99) Calcium Level 8.2 mg/dL (8.5-10.1) Total Bilirubin 0.1 mg/dL (0.2-1.0) Aspartate Amino Transf (AST/SGOT) 76 U/L (15-37) Alanine Aminotransferase (ALT/SGPT) 33 U/L (14-59) Alkaline Phosphatase 119 U/L (46-116) Total Protein 5.7 g/dL (6.4-8.2) Albumin 2.0 g/dL (3.4-5.0) Albumin/Globulin Ratio 0.5 (1.0-1.7) Test 08/28/19 07:16 08/28/19 10:49 Glucose (Fingerstick) 270 mg/dL (70-99) 189 mg/dL (70-99) Laboratory Tests Test 08/27/19 16:31 08/27/19 21:39 08/28/19 04:35 08/28/19 07:16 Glucose (Fingerstick) 142 mg/dL (70-99) 220 mg/dL (70-99) 270 mg/dL (70-99) White Blood Count 8.0 x10^3/uL (4.0-11.0) Red Blood Count 3.14 x10^6/uL (3.50-5.40) Hemoglobin 9.2 g/dL (12.0-15.5) Hematocrit 27.9 % (36.0-47.0) Mean Corpuscular Volume 89 fL (79-100) Mean Corpuscular Hemoglobin 29 pg (25-35) Mean Corpuscular Hemoglobin Concent 33 g/dL (31-37) Red Cell Distribution Width 13.3 % (11.5-14.5) Platelet Count 353 x10^3/uL (140-400) Sodium Level 139 mmol/L (136-145) Potassium Level 3.7 mmol/L (3.5-5.1) Chloride Level 106 mmol/L (98-107) Carbon Dioxide Level 25 mmol/L (21-32) Anion Gap 8 (6-14) Blood Urea Nitrogen 8 mg/dL (7-20) Creatinine 0.8 mg/dL (0.6-1.0) Estimated GFR (Cockcroft-Gault) 79.9 BUN/Creatinine Ratio 10 (6-20) Glucose Level 322 mg/dL (70-99) Calcium Level 8.2 mg/dL (8.5-10.1) Total Bilirubin 0.1 mg/dL (0.2-1.0) Aspartate Amino Transf (AST/SGOT) 76 U/L (15-37) Alanine Aminotransferase (ALT/SGPT) 33 U/L (14-59) Alkaline Phosphatase 119 U/L (46-116) Total Protein 5.7 g/dL (6.4-8.2) Albumin 2.0 g/dL (3.4-5.0) Albumin/Globulin Ratio 0.5 (1.0-1.7) Test 08/28/19 10:49 Glucose (Fingerstick) 189 mg/dL (70-99) Medications Current Medications Vancomycin HCl (Vanco Per Pharmacy) 1 each PRN DAILY PRN MC SEE COMMENTS Last administered on 08/27/19 13:11; Start 08/24/19 at 21:15 Aztreonam (Azactam) 2 gm Q6HRS IVP Last administered on 08/25/19 05:56; Start 08/24/19 at 21:30; Stop 08/25/19 at 09:04; Status DC Multi-Ingredient Mouthwash/Gargle (Gi Cocktail) 30 ml PRN QID PRN PO heartburn; Start 08/24/19 at 21:15 Pantoprazole Sodium (Protonix) 40 mg DAILYAC PO Last administered on 08/28/19 09:03; Start 08/25/19 at 07:30 Fentanyl Citrate (Fentanyl 2ml Vial) 50 mcg PRN Q2HR PRN IVP SEVERE PAIN Last administered on 08/27/19 09:41; Start 08/24/19 at 21:15 Insulin Glargine (Lantus Syringe) 10 unit QHS SQ Last administered on 08/27/19 23:00; Start 08/24/19 at 21:00 Vancomycin HCl 2 gm/Sodium Chloride 500 ml @ 250 mls/hr 1X ONCE IV Last administered on 08/24/19 21:00; Start 08/24/19 at 22:00; Stop 08/24/19 at 23:59; Status DC Vancomycin HCl 1 gm/Sodium Chloride 250 ml @ 250 mls/hr Q12H IV Last administered on 08/25/19 20:58; Start 08/25/19 at 09:00; Stop 08/26/19 at 09:41; Status DC Vancomycin HCl (Vancomycin Trough Level) 1 each 1X ONCE MC Last administered on 08/26/19 08:30; Start 08/26/19 at 08:30; Stop 08/26/19 at 08:31; Status DC Sodium Chloride 1,000 ml @ 100 mls/hr Q10H IV Last administered on 08/26/19 10:15; Start 08/25/19 at 01:00; Stop 08/27/19 at 13:04; Status DC Ondansetron HCl (Zofran) 4 mg PRN Q6HRS PRN IVP NAUSEA/VOMITING 1ST CHOICE Last administered on 08/28/19 09:03; Start 08/25/19 at 03:30 Insulin Human Lispro (HumaLOG) 0-9 UNITS TIDWMEALS SQ Last administered on 08/28/19 12:30; Start 08/25/19 at 12:00 Dextrose (Dextrose 50%-Water Syringe) 12.5 gm PRN Q15MIN PRN IV SEE COMMENTS; Start 08/25/19 at 09:00 Aztreonam (Azactam) 2 gm Q8HRS IVP Last administered on 08/28/19 06:07; Start 08/25/19 at 14:00; Stop 08/28/19 at 08:52; Status DC Hydromorphone HCl (Dilaudid) 0.4 mg PRN Q3HRS PRN IVP MODERATE PAIN Last administered on 08/28/19 12:26; Start 08/25/19 at 09:15 Lactobacillus Rhamnosus (Culturelle) 1 cap BID PO Last administered on 08/28/19 09:03; Start 08/25/19 at 21:00 Diphenhydramine HCl (Benadryl) 25 mg PRN Q6HRS PRN IVP ITCHING Last administered on 08/28/19 09:02; Start 08/25/19 at 14:30 Sodium Chloride 1,000 ml @ 75 mls/hr [id number] IV Last administered on 08/28/19 12:23; Start 08/26/19 at 08:00 Levofloxacin/ Dextrose 100 ml @ 100 mls/hr 1X ONCE IV Last administered on 08/26/19 10:20; Start 08/26/19 at 08:30; Stop 08/26/19 at 09:29; Status DC Vancomycin HCl 1 gm/Sodium Chloride 250 ml @ 250 mls/hr Q8H IV Last administered on 08/28/19 02:06; Start 08/26/19 at 10:00; Stop 08/28/19 at 08:52; Status DC Levofloxacin/ Dextrose 150 ml @ 100 mls/hr Q24H IV Last administered on 08/28/19at 09:03; Start 08/28/19 at 09:00 Vancomycin HCl 1 gm/Sodium Chloride 250 ml @ 250 mls/hr Q8H IV Last administe red on 08/28/19at 10:45; Start 08/28/19 at 10:00 Aztreonam (Azactam) 2 gm Q8HRS IVP Last administered on 08/28/19at 14:00; St art 08/28/19 at 14:00 Active Scripts Active Reported Levemir (Insulin Detemir) 100 Unit/1 Ml Vial 25 Units SQ QHS Vitals/I & O Vital Sign - Last 24 Hours 08/27/19 08/27/19 08/27/19 08/27/19 15:00 15:37 16:44 19:42 Temp 98.4 98.4 Pulse 109 Resp 20 B/P (MAP) 144/86 (105) Pulse Ox 99 99 99 O2 Delivery Room Air Room Air Room Air Room Air 08/27/19 08/27/19 08/27/19 08/27/19 19:52 22:58 23:09 23:30 Temp 97.8 98.4 97.8 98.4 Pulse 113 106 Resp 16 16 B/P (MAP) 157/91 (113) 158/80 (106) Pulse Ox 98 96 O2 Delivery Room Air Room Air Room Air Room Air 08/28/19 08/28/19 08/28/19 08/28/19 01:40 02:30 03:34 07:41 Temp 98.1 97.6 98.1 97.6 Pulse 107 100 Resp 16 18 B/P (MAP) 133/72 (92) 136/82 (100) Pulse Ox 95 96 O2 Delivery Room Air Room Air Room Air Room Air 08/28/19 08/28/19 08:00 11:49 Temp 97.9 97.9 Pulse 107 Resp 18 B/P (MAP) 153/89 (110) Pulse Ox 96 O2 Delivery Room Air Room Air Intake and Output 08/27/19 08/27/19 08/28/19 15:00 23:00 07:00 Intake Total 400 ml 440 ml 2070 ml Output Total 750 ml 1150 ml 600 ml Balance -350 ml -710 ml 1470 ml Problem List Abd pain- with possible colo-vesical fistula, o/p cystoscopy recommended, continue with antibiotics. SYLVESTER BRADSHAW MD Aug 28, 2019 14:51
[2019-08-28 15:43] VITALS: BP 164/93
[2019-08-28 19:41] VITALS: BP 153/81
[2019-08-28] MEDS: INSULIN GLARGINE SYRINGE. SQ SCH (20:11)
[2019-08-28 23:49] VITALS: BP 155/83
[2019-08-29] MEDS: HYDROmorphone 2 MG/ML VIAL IVP PRN ×7 (00:32→21:18)
[2019-08-29] MEDS: IV NORMAL SALINE 1000ML BAG 1,000 ML IV SCH ×2 (00:35→15:17)
[2019-08-29] MEDS: VANCOMYCIN 1 GM in IV NORMAL SALINE 250ML 250 ML IV SCH ×3 (00:36→17:42)
[2019-08-29 03:30] VITALS: BP 160/88
[2019-08-29] MEDS: ONDANSETRON PF 4 MG/2 ML VIAL. IVP PRN ×3 (03:32→19:35)
[2019-08-29] MEDS: diphenhydrAMINE 50 MG/ML VIAL IVP PRN ×3 (03:34→19:36)
[2019-08-29] MEDS: AZTREONAM IV Push 2 GM VIAL. IVP SCH ×3 (05:52→21:17)
[2019-08-29 07:00] VITALS: BP 158/89
[2019-08-29] MEDS: INSULIN LISPRO 300 UNITS/3 ML VIAL. SQ SCH ×3 (08:00→17:37)
[2019-08-29] MEDS: LACTOBACILLUS RHAMNOSUS GG 1 CAPSULE. PO SCH ×2 (08:09→21:17)
[2019-08-29] MEDS: PANTOPRAZOLE 40 MG TABLET.DR. PO SCH (08:09)
--- NOTE | 2019-08-29 09:32 | PDOC ---
Subjective: Subjective: Feels about the same - requiring IV pain meds for lower abd pain. Passing stool, urine is cloudy. Eating some, has some nausea. Reports normal colonoscopy ~4 years ago. Objective: Vital Signs: Vital Signs Date Time Temp Pulse Resp B/P (MAP) Pulse Ox O2 Delivery O2 Flow Rate FiO2 08/29/19 07:05 19 97 Room Air 08/29/19 07:00 97.5 94 158/89 (112) 97.5 Labs: Laboratory Tests Test 08/28/19 10:49 08/28/19 16:48 08/28/19 20:05 08/29/19 07:38 Glucose (Fingerstick) 189 mg/dL 89 mg/dL 193 mg/dL 148 mg/dL PE: GEN: NAD LUNGS: CTAB HEART: RRR ABD: quiet BS, soft, suprapubic discomfort NEURO/PSYCH: A & O 3 A/P: Lower abd pain, nausea Bacteremia, UTI, anemia Abnormal CT - possible colovesical fistula Elevated lipase (resolved), elevated Alk Phos (improved), elevated AST S/p cholecystectomy CRC screen - reports normal colonoscopy ~4 years ago -- Continue antibiotics per ID and pain control per primary. Urology not available - outpt cystoscopy. Continue PPI, check anemia parameters. MADHURI REA Aug 29, 2019 09:32
[2019-08-29 11:00] VITALS: BP 148/84
--- NOTE | 2019-08-29 11:11 | PDOC ---
Infectious Disease Note Subjective Subjective Feeling good Urine cloudy, + gas No F/C/S ROS ROS no n/v/d/sob Vital Sign Vital Signs Vital Signs Date Time Temp Pulse Resp B/P (MAP) Pulse Ox O2 Delivery O2 Flow Rate FiO2 08/29/19 10:00 Room Air 08/29/19 09:45 19 97 08/29/19 07:00 97.5 94 158/89 (112) 97.5 Physical Exam PHYSICAL EXAM GENERAL: Propped up in bed, alert, NAD HEENT: Oral cavity, pharynx, clear, poor dentition NECK: Supple. No JVD. LUNGS: Clear HEART: S1, S2. ABDOMEN: Mildly obese, soft, + BS, no guarding EXTREMITIES: No gross edema. SKIN: Warm to touch without signs of generalized rash. NEUROLOGICAL: Alert and appropriate. Labs Lab Laboratory Tests Test 08/28/19 16:48 08/28/19 20:05 08/29/19 07:38 Glucose (Fingerstick) 89 mg/dL (70-99) 193 mg/dL (70-99) 148 mg/dL (70-99) Objective Assessment Cystitis, likely has colovesical fistula, do not believe has empysematous cystitis Bacteremia, GPC in chains & gram positive diplococci from 08/24 ([facility] ID pending Abx allergies - PCN - Fonseca-Mati. Rocephin hypotension/syncope UTI - POA 08/24 at [facility] - Klebsiella (R amp) ? pancreatitis with lipase 656 - improved 08/25 Type 1 DM Poor dentition Plan Plan of Care Vanc and Aztreonam continue Levaquin F/u labs and cults Probiotics No longer have urology service BC results pending, pt has taken keflex without any problem in the past and feels comfortable taking D/w Dr. Mat MENON,QUINCY Deras MD Aug 29, 2019 11:11
[2019-08-29] MEDS: CYANOCOBALAMIN (VITAMIN B-12) 1,000 MCG TABLET. PO SCH (14:10)
[2019-08-29 15:00] VITALS: BP 153/85
[2019-08-29] MEDS: fentaNYL PF VIAL 100 MCG/2 ML VIAL IVP PRN (15:15)
--- NOTE | 2019-08-29 15:15 | PN ---
DATE: 08/29/2019 SUBJECTIVE: The patient is resting, slightly propped up in bed, in no apparent respiratory distress. Denied any further episodes of nausea and vomiting. Denied any chills, rigors or fever. She continued to have very cloudy urine and expressed her desire to be transferred to ____ Center with Urology services. I contacted the [facility] and unfortunately, I have spent long time, waiting for somebody to call me and without much success, though I will try again. PHYSICAL EXAMINATION: GENERAL: When I examined her this morning, she was pale, but no jaundice, cyanosis or thyromegaly. No jugular venous distention. No limb edema. VITAL SIGNS: Her heart rate was 94, blood pressure 158/89, temperature was 97.5, respiratory rate was 16, and oxygen saturation was 97%. The rest of clinical examination is stable, has not really changed. LABORATORY DATA: Her chemistry as of yesterday showed her BUN is 8, creatinine is 0.8. Her ____ showed hemoglobin of 9.2, hematocrit 27.9 with normal white cell count and platelets. Her urine culture has grown more than 100,000 colony forming units of Gram-negative rods identified as Klebsiella pneumoniae, sensitive to Levaquin. She also grew Gram-positive cocci in chains in 1 of 4 bottles and also Gram-positive cocci in chains, seen in 2 out of Gram-positive diplococci seen in 1/4. ASSESSMENT: 1. 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 2. Urinary tract infection with growth of multiple organisms including Klebsiella pneumoniae, Gram-positive cocci as well as Gram-negative diplococci. 3. Pancreatitis has resolved. 4. Type 1 diabetes that seems to be well controlled. PLAN: My plan is to continue with oral antibiotic including vancomycin, aztreonam as well as levofloxacin. We will make another attempt to contact to see if transferring the patient now is what their urologist recommending. HANY MILLER MD DR: SVETLANA/omar JOB#: [id number] / [id number]
[2019-08-29] MEDS: VANCOMYCIN PER PHARMACY MC PRN (17:07)
[2019-08-29 19:56] VITALS: BP 145/79
[2019-08-29] MEDS: INSULIN GLARGINE SYRINGE. SQ SCH (21:25)
[2019-08-29 23:29] VITALS: BP 139/78
[2019-08-30] MEDS: HYDROmorphone 2 MG/ML VIAL IVP PRN ×6 (01:03→20:36)
[2019-08-30] MEDS: VANCOMYCIN 1 GM in IV NORMAL SALINE 250ML 250 ML IV SCH (01:03)
[2019-08-30] MEDS: diphenhydrAMINE 50 MG/ML VIAL IVP PRN ×3 (01:08→16:15)
[2019-08-30] MEDS: ONDANSETRON PF 4 MG/2 ML VIAL. IVP PRN ×3 (01:09→16:15)
[2019-08-30 03:32] VITALS: BP 158/84
[2019-08-30 04:56] LABS: HEMATOCRIT 28.7 % (36.0-47.0); HEMOGLOBIN 9.6 g/dL (12.0-15.5); RED BLOOD COUNT 3.25 x10^6/uL (3.50-5.40); RED CELL DISTRIBUTION WIDTH 13.5 % (11.5-14.5); WHITE BLOOD COUNT 8.7 x10^3/uL (4.0-11.0)
[2019-08-30 05:04] LABS: CALCIUM 8.4 mg/dL (8.5-10.1); CREATININE 0.6 mg/dL (0.6-1.0); GFR 111.3; POTASSIUM 3.3 mmol/L (3.5-5.1)
[2019-08-30] MEDS: IV NORMAL SALINE 1000ML BAG 1,000 ML IV SCH ×2 (05:36→20:26)
[2019-08-30] MEDS: AZTREONAM IV Push 2 GM VIAL. IVP SCH (05:37)
[2019-08-30 07:00] VITALS: BP 151/86
[2019-08-30] MEDS ORDERED: FERROUS SULFATE 325 MG TABLET. PO SCH (08:00)
[2019-08-30] MEDS: PANTOPRAZOLE 40 MG TABLET.DR. PO SCH (08:56)
[2019-08-30] MEDS: LACTOBACILLUS RHAMNOSUS GG 1 CAPSULE. PO SCH ×2 (08:56→20:28)
[2019-08-30] MEDS: CYANOCOBALAMIN (VITAMIN B-12) 1,000 MCG TABLET. PO SCH (08:56)
[2019-08-30] MEDS: INSULIN LISPRO 300 UNITS/3 ML VIAL. SQ SCH ×3 (09:13→17:22)
--- NOTE | 2019-08-30 10:11 | PDOC ---
Subjective: Subjective: Nausea - didn't eat breakfast. Lower abd pain and lower back pain - might be worse today, awaiting pain meds. Urine is cloudy, stooled yesterday. Objective: Objective: D/w Dr. Rivero - possible DC if able to have PO atbx per ID. Vital Signs: Vital Signs Date Time Temp Pulse Resp B/P (MAP) Pulse Ox O2 Delivery O2 Flow Rate FiO2 08/30/19 08:57 94 Room Air 08/30/19 07:00 97.8 95 18 151/86 (107) 97.8 Labs: Laboratory Tests Test 08/29/19 11:40 08/29/19 12:00 08/29/19 17:13 08/29/19 20:55 Iron Level 38 ug/dL Total Iron Binding Capacity 289 ug/dL Iron Saturation 13 % Vitamin B12 Level 328 pg/mL Glucose (Fingerstick) 221 mg/dL 217 mg/dL 213 mg/dL Test 08/30/19 04:00 08/30/19 07:32 White Blood Count 8.7 x10^3/uL Red Blood Count 3.25 x10^6/uL Hemoglobin 9.6 g/dL Hematocrit 28.7 % Mean Corpuscular Volume 88 fL Mean Corpuscular Hemoglobin 30 pg Mean Corpuscular Hemoglobin Concent 34 g/dL Red Cell Distribution Width 13.5 % Platelet Count 355 x10^3/uL Sodium Level 141 mmol/L Potassium Level 3.3 mmol/L Chloride Level 108 mmol/L Carbon Dioxide Level 26 mmol/L Anion Gap 7 Blood Urea Nitrogen 7 mg/dL Creatinine 0.6 mg/dL Estimated GFR (Cockcroft-Gault) 111.3 Glucose Level 240 mg/dL Calcium Level 8.4 mg/dL Glucose (Fingerstick) 228 mg/dL BLOOD CULTURE Preliminary NO GROWTH AFTER 1 DAY PE: GEN: uncomfortable LUNGS: room air HEART: RRR ABD: quiet BS, suprapubic tenderness NEURO/PSYCH: A & O 3 A/P: Lower abd pain, lower back pain, nausea Bacteremia, UTI Anemia - probably element of iron deficiency and borderline low B12 Abnormal CT - possible colovesical fistula -- Pain seems worse this morning, still needing IV pain meds and not eating - DC discussed. Hold off on iron for now w/ nausea. ?interval imaging Needs urology follow-up as outpt. Reports normal colonoscopy ~4 years ago. Continue PPI, add Zofran PRN. Will review w/ Dr. Negrete. MADHURI REA Aug 30, 2019 10:10
[2019-08-30] MEDS ORDERED: ONDANSETRON ODT 4 MG TAB.RAPDIS. PO PRN (10:30)
--- NOTE | 2019-08-30 10:32 | PDOC ---
Infectious Disease Note Subjective Subjective Feeling good Urine cloudy, + gas No F/C/S ROS MARIKA did vomit once today Vital Sign Vital Signs Vital Signs Date Time Temp Pulse Resp B/P (MAP) Pulse Ox O2 Delivery O2 Flow Rate FiO2 08/30/19 08:57 94 Room Air 08/30/19 07:00 97.8 95 18 151/86 (107) 97.8 Physical Exam PHYSICAL EXAM GENERAL: Propped up in bed, alert, NAD HEENT: Oral cavity, pharynx, clear, poor dentition NECK: Supple. No JVD. LUNGS: Clear HEART: S1, S2. ABDOMEN: Mildly obese, soft, + BS, no guarding EXTREMITIES: No gross edema. SKIN: Warm to touch without signs of generalized rash. NEUROLOGICAL: Alert and appropriate. Labs Lab Laboratory Tests Test 08/29/19 11:40 08/29/19 12:00 08/29/19 17:13 08/29/19 20:55 Iron Level 38 ug/dL (50-170) Total Iron Binding Capacity 289 ug/dL (250-450) Iron Saturation 13 % (15-34) Vitamin B12 Level 328 pg/mL (247-911) Glucose (Fingerstick) 221 mg/dL (70-99) 217 mg/dL (70-99) 213 mg/dL (70-99) Test 08/30/19 04:00 08/30/19 07:32 White Blood Count 8.7 x10^3/uL (4.0-11.0) Red Blood Count 3.25 x10^6/uL (3.50-5.40) Hemoglobin 9.6 g/dL (12.0-15.5) Hematocrit 28.7 % (36.0-47.0) Mean Corpuscular Volume 88 fL (79-100) Mean Corpuscular Hemoglobin 30 pg (25-35) Mean Corpuscular Hemoglobin Concent 34 g/dL (31-37) Red Cell Distribution Width 13.5 % (11.5-14.5) Platelet Count 355 x10^3/uL (140-400) Sodium Level 141 mmol/L (136-145) Potassium Level 3.3 mmol/L (3.5-5.1) Chloride Level 108 mmol/L (98-107) Carbon Dioxide Level 26 mmol/L (21-32) Anion Gap 7 (6-14) Blood Urea Nitrogen 7 mg/dL (7-20) Creatinine 0.6 mg/dL (0.6-1.0) Estimated GFR (Cockcroft-Gault) 111.3 Glucose Level 240 mg/dL (70-99) Calcium Level 8.4 mg/dL (8.5-10.1) Glucose (Fingerstick) 228 mg/dL (70-99) Micro BC from here Microbiology 08/28/19 Blood Culture - Preliminary, Resulted NO GROWTH AFTER 1 DAY BC from [place], 12/20 viridans strep Objective Assessment Cystitis, likely has colovesical fistula, do not believe has empysematous cystitis Bacteremia, GPC in chains & gram positive diplococci from 08/24 ([facility] ID pending Abx allergies - PCN - Jad. Rocephin hypotension/syncope UTI - POA 08/24 at [facility] - Klebsiella (R amp) ? pancreatitis with lipase 656 - improved 08/25 Type 1 DM Poor dentition Plan Plan of Care Vanc and Aztreonam,, d/c , continue Levaquin F/u labs and cults Probiotics No longer have urology service BC results pending, pt has taken keflex without any problem in the past and feels comfortable taking D/w Dr. Mat hernandez to d/c f/u with urology QUINCY MENON MD Aug 30, 2019 10:32
[2019-08-30 11:00] VITALS: BP 159/89
[2019-08-30] MEDS: fentaNYL PF VIAL 100 MCG/2 ML VIAL IVP PRN (11:10)
--- NOTE | 2019-08-30 11:17 | NUR ---
1100 PO Levaquin nonadministered d/t giving IV dose at 0900. Spoke with pharmacy.
[2019-08-30 15:00] VITALS: BP 157/95
--- NOTE | 2019-08-30 15:25 | NUR ---
SW following pt for dc planning. Chart reviewed. Pt lives at home with family. ID following. No SW needs noted at this time. Will be available as needed.
[2019-08-30 19:33] VITALS: BP 149/85
[2019-08-30] MEDS: INSULIN GLARGINE SYRINGE. SQ SCH (20:41)
[2019-08-30 23:31] VITALS: BP 166/87
--- NOTE | 2019-08-30 23:32 | NUR ---
Benadryl and Zofran given during [employer] downtime; see paper chart.
[2019-08-31] MEDS: HYDROmorphone 2 MG/ML VIAL IVP PRN ×6 (00:32→20:27)
[2019-08-31 03:41] VITALS: BP 141/82
[2019-08-31] MEDS: IV NORMAL SALINE 1000ML BAG 1,000 ML IV SCH ×2 (06:25→20:28)
--- NOTE | 2019-08-31 06:49 | HP ---
ADMIT DATE: 08/28/2019 SUBJECTIVE: The patient is resting, slightly propped up in bed, no apparent distress. She continues to complain of nausea whenever she gets her antibiotic. Her urine culture has grown more than 100,000 colony forming units per mL of gram-negative rods identified as Klebsiella pneumoniae sensitive to Levaquin, ciprofloxacin as well as all the cephalosporins, Augmentin. PHYSICAL EXAMINATION: GENERAL: When I examined her this morning, she looked well, slightly pale, but no jaundice, cyanosis or thyromegaly. No jugular venous distention. No limb edema. VITAL SIGNS: Her heart rate was 100, blood pressure was 136/82, temperature was 97.6, respiratory rate was 18 and oxygen saturation was 96%. The rest of clinical exam stable, has not really changed. Her intake was 1150, output was 630. LABORATORY DATA: As of this morning, her white cell count was 8000, hemoglobin 9, hematocrit 27, MCV 89 and platelet count 353,000. Her chemistry showed a serum sodium 139, potassium 3.7, chloride 106, bicarbonate 25, anion gap of 8, BUN 8, creatinine 0.8, estimated GFR was 79 mL per minute. Her blood glucose was 322, calcium was 8.1. Total bilirubin, AST, ALT were normal. Alkaline phosphatase slightly elevated. Total protein was 5.7, albumin was 2. Tox screen showed vancomycin trough level was 10. ASSESSMENT: In summary, this is a 39-year-old female patient with: 1. 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 2. Urinary tract infection present on admission to [facility]. She did grow more than 100,000 colony forming units per mL of gram-negative rods identified as Klebsiella pneumoniae, sensitive to cephalosporins and quinolones. 3. Pancreatitis that has resolved. 4. Type 1 diabetes mellitus, seems to be reasonably controlled. PLAN: My plan is to discontinue the vancomycin at this time and start her on levofloxacin. I do not see any reason for transferring her to another hospital today. I will discuss with the Infectious Disease specialist, just continue with oral antibiotic to finish the treatment as an outpatient, and we will arrange for her to have Urology consult as an outpatient. HANY MILLER MD DR: SVETLANA/omar JOB#: [id number] / [id number]
[2019-08-31 07:00] VITALS: BP 149/85
[2019-08-31] MEDS: ONDANSETRON PF 4 MG/2 ML VIAL. IVP PRN ×3 (07:50→20:30)
[2019-08-31] MEDS: diphenhydrAMINE 50 MG/ML VIAL IVP PRN ×3 (07:50→20:38)
[2019-08-31] MEDS: INSULIN LISPRO 300 UNITS/3 ML VIAL. SQ SCH ×3 (08:00→17:22)
[2019-08-31] MEDS: fentaNYL PF VIAL 100 MCG/2 ML VIAL IVP PRN ×3 (08:05→16:22)
--- NOTE | 2019-08-31 09:36 | PDOC ---
Infectious Disease Note Subjective Subjective vomiting has improved, but significant nausea and a lot of abd pain present ROS ROS no diarrhea urinary sy are the same Vital Sign Vital Signs Vital Signs Date Time Temp Pulse Resp B/P (MAP) Pulse Ox O2 Delivery O2 Flow Rate FiO2 08/31/19 08:05 20 93 Room Air 08/31/19 07:00 97.8 96 149/85 (106) 97.8 Physical Exam PHYSICAL EXAM GENERAL: Propped up in bed, alert, NAD HEENT: Oral cavity, pharynx, clear, poor dentition NECK: Supple. No JVD. LUNGS: Clear HEART: S1, S2. ABDOMEN: Mildly obese, soft, + BS, no guarding EXTREMITIES: No gross edema. SKIN: Warm to touch without signs of generalized rash. NEUROLOGICAL: Alert and appropriate. Labs Lab Laboratory Tests Test 08/30/19 11:11 08/30/19 15:44 08/30/19 20:18 08/31/19 07:26 Glucose (Fingerstick) 190 mg/dL (70-99) 195 mg/dL (70-99) 206 mg/dL (70-99) 161 mg/dL (70-99) Micro BC from here Microbiology 08/28/19 Blood Culture - Preliminary, Resulted NO GROWTH AFTER 1 DAY BC from [place], / viridans strep Objective Assessment Cystitis, likely has colovesical fistula, do not believe has empysematous cystitis Bacteremia, GPC in chains & gram positive diplococci from 08/24 ([facility]). ID pending Abx allergies - PCN - Fonseca-Mati. Rocephin hypotension/syncope UTI - POA 08/24 at [facility] - Klebsiella (R amp) ? pancreatitis with lipase 656 - improved 08/25 Type 1 DM Poor dentition Plan Plan of Care continue Levaquin F/u labs and cults Probiotics No longer have urology service BC results pending, pt has taken keflex without any problem in the past and feels comfortable taking D/w Dr. Mat hernandez to d/c f/u with urology will get ct abd and pelvis QUINCY MENON MD Aug 31, 2019 09:36
[2019-08-31] MEDS: LACTOBACILLUS RHAMNOSUS GG 1 CAPSULE. PO SCH ×2 (10:40→20:39)
[2019-08-31] MEDS: CYANOCOBALAMIN (VITAMIN B-12) 1,000 MCG TABLET. PO SCH (10:40)
[2019-08-31] MEDS: PANTOPRAZOLE 40 MG TABLET.DR. PO SCH (10:40)
[2019-08-31 11:00] VITALS: BP 157/87
[2019-08-31] MEDS ORDERED: CONTRAST GIVEN. MC PRN (12:30)
[2019-08-31] MEDS ORDERED: IOHEXOL 300 MG/ML 100ML VIAL. IV ONE (12:30)
[2019-08-31] MEDS ORDERED: IOHEXOL 240 MG/ML 50ML VIAL. PO ONE (12:30)
--- NOTE | 2019-08-31 12:35 | PN ---
DATE: 08/31/2019 SUBJECTIVE: The patient is resting, slightly propped up in bed, continued to complain of abdominal pain. She was seen by Dr. Wong who ordered a CT scan of the abdomen and pelvis. With the plan that she might require transfer to another hospital; however, the patient continued to be afebrile. OBJECTIVE: GENERAL: When I examined her, she looked somewhat pale, no jaundice, cyanosis or thyromegaly. No jugular venous distention. No limb edema. VITAL SIGNS: Her heart rate was 96, blood pressure 149/85, temperature was 97.8, respiratory rate was 18 and oxygen saturation was 93%. HEAD, EYES, EARS, NOSE AND THROAT: Showed normocephalic, atraumatic. NECK: Supple. HEART: Showed normal first and second heart sounds. No gallop, rub or murmur. CHEST: Clear to auscultation. No crepitation or rhonchi. ABDOMEN: Distended, mild tenderness mostly in the left side. The patient continued to complain of a lot of abdominal pain and nausea, but no vomiting. There is no guarding or rigidity. No organomegaly. All hernial orifice intact. Bowel sounds normal. NEUROLOGIC: She is awake, alert, responding appropriately. All cranial nerves intact. She moves extremities without difficulty. She ambulates without assistance or assistive devices. Her intake was 1200, output was 2100. LABORATORY DATA: Her blood sugar seems to be well controlled. As of yesterday, her serum sodium 141, potassium 3.3, chloride 108, bicarbonate 26, anion gap of 7, BUN 7 and creatinine 0.6. Estimated GFR was 111 mL per minute. Her glucose was 140, calcium was 8.4. Her white cell count was 8700, hemoglobin 9.6, hematocrit 28.7, MCV 88 and platelet count 355,000. ASSESSMENT: 1. 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 2. Urinary tract infection present on admission and sent to [facility]. She did grow more than 100,000 colony-forming units per mL of gram-negative rods identified as Klebsiella pneumoniae, sensitive to cephalosporins and quinolones. She also grew gram-positive diplococci identified as viridans streptococcus group. 3. Pancreatitis, has resolved. 4. Type 1 diabetes mellitus that seems to be reasonably controlled. PLAN: To continue with Levaquin. Await the result of the CT scan of the abdomen and pelvis and decides on further management accordingly. HANY MILLER MD DR: SVETLANA/omar JOB#: [id number] / [id number]
--- NOTE | 2019-08-31 12:59 | PDOC ---
Subjective: Subjective: Not eating lunch because needs to be NPO for CT. Feels the same. Was able to eat a little dinner yesterday but didn't eat breakfast due to nausea this morning. Pain is the same. Objective: Vital Signs: Vital Signs Date Time Temp Pulse Resp B/P (MAP) Pulse Ox O2 Delivery O2 Flow Rate FiO2 08/31/19 11:00 98.3 101 18 157/87 (110) 95 Room Air 98.3 Labs: Laboratory Tests Test 08/30/19 15:44 08/30/19 20:18 08/31/19 07:26 08/31/19 11:28 Glucose (Fingerstick) 195 mg/dL 206 mg/dL 161 mg/dL 199 mg/dL PE: GEN: NAD - does look more comfortable than yesterday LUNGS: room air HEART: mildly tachycardic ABD: soft, suprapubic tenderness extending to BLQ NEURO/PSYCH: A & O 3 A/P: Lower abd pain, lower back pain, nausea Bacteremia, UTI, anemia Abnormal CT - possible colovesical fistula -- Plans for interval CT, await this. MADHURI REA Aug 31, 2019 12:59
[2019-08-31 15:00] VITALS: BP 167/95
--- NOTE | 2019-08-31 15:51 | RAD ---
Examination: CT ABD PELV W/ORAL IV CONTRAST History: Colovesicular fistula Comparison/Correlation: None Findings: Axial images of the abdomen and pelvis were obtained following IV and oral contrast. Sagittal and coronal reformatted images were provided. Oral contrast only reaches the distal jejunal level. Small pleural effusions are present. Minimal adjacent atelectasis of lung bases noted. Liver, spleen, pancreas, and adrenal glands are normal. Anasarca is noted. Small amount of ascites noted within the abdomen. Right hydronephrosis and hydroureter are present. No left collecting system obstruction. Small amount of gas is present within the nondependent aspect of the distended urinary bladder. Adnexal follicles and cysts bilaterally appear are present measuring up to 4.3 cm diameter on the left. Septations are present involving this cyst with enhancement noted. Moderate quantity of stool in the colon is present. Appendix is normal. No loculated collections about the colon. Presacral free fluid noted. Bony structures are unremarkable. Impression: Right hydronephrosis and hydroureter are new compared to the prior exam. Ureters do not opacify with contrast. No radiopaque calculus lesion delineated. Ascites, anasarca. Small bilateral pleural effusions and adjacent atelectasis. Gas within the urinary bladder. Correlate with history of fistula. Consider further evaluation with cystogram for more definitive assessment of the site of the fistula if needed. Bilateral adnexal cystic structures are present. Complex left adnexal cyst appears decreased in size and since CT exam of the abdomen and pelvis without contrast dated 07/14/2019. PQRS Compliance Statement: One or more of the following individualized dose reduction techniques were utilized for this examination: 1. Automated exposure control 2. Adjustment of the mA and/or kV according to patient size 3. Use of iterative reconstruction technique Electronically signed by: Wood Velázquez MD (08/31/2019 3:48 PM) [facility]
[2019-08-31 19:40] VITALS: BP 149/82
[2019-08-31] MEDS: INSULIN GLARGINE SYRINGE. SQ SCH (20:44)
[2019-08-31 23:30] VITALS: BP 165/85
[2019-09-01] MEDS: HYDROmorphone 2 MG/ML VIAL IVP PRN ×4 (00:56→13:57)
[2019-09-01] MEDS: diphenhydrAMINE 50 MG/ML VIAL IVP PRN ×4 (02:35→20:46)
[2019-09-01] MEDS: ONDANSETRON PF 4 MG/2 ML VIAL. IVP PRN ×4 (02:35→20:44)
[2019-09-01 03:29] VITALS: BP 163/84
[2019-09-01] MEDS: PANTOPRAZOLE 40 MG TABLET.DR. PO SCH (07:30)
[2019-09-01 07:56] VITALS: BP 156/87
[2019-09-01] MEDS: INSULIN LISPRO 300 UNITS/3 ML VIAL. SQ SCH ×3 (08:00→17:00)
[2019-09-01] MEDS: LACTOBACILLUS RHAMNOSUS GG 1 CAPSULE. PO SCH ×2 (08:08→21:11)
[2019-09-01] MEDS: CYANOCOBALAMIN (VITAMIN B-12) 1,000 MCG TABLET. PO SCH (08:08)
[2019-09-01] MEDS: IV NORMAL SALINE 1000ML BAG 1,000 ML IV SCH ×2 (09:51→23:48)
[2019-09-01 11:00] VITALS: BP 155/85
--- NOTE | 2019-09-01 11:08 | PDOC ---
Subjective: Subjective: Pain is the same, has vomited. Feels like the right side of her body is swollen. Objective: Objective: No notes in chart - nurse received in report that transfer discussed - declined by [facility] but awaiting [facility] approval? Bilious emesis. Vital Signs: Vital Signs Date Time Temp Pulse Resp B/P (MAP) Pulse Ox O2 Delivery O2 Flow Rate FiO2 09/01/19 07:56 98.1 103 16 156/87 (110) 97 Room Air 98.1 Labs: Laboratory Tests Test 08/31/19 11:28 08/31/19 16:15 08/31/19 20:46 09/01/19 07:28 Glucose (Fingerstick) 199 mg/dL 235 mg/dL 138 mg/dL 156 mg/dL BLOOD CULTURE Preliminary NO GROWTH AFTER 3 DAYS Imaging: CT A/P Impression: Right hydronephrosis and hydroureter are new compared to the prior exam. Ureters do not opacify with contrast. No radiopaque calculus lesion delineated. Ascites, anasarca. Small bilateral pleural effusions and adjacent atelectasis. Gas within the urinary bladder. Correlate with history of fistula. Consider further evaluation with cystogram for more definitive assessment of the site of the fistula if needed. Bilateral adnexal cystic structures are present. Complex left adnexal cyst appears decreased in size and since CT exam of the abdomen and pelvis without contrast dated 07/14/2019. 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 Recheck labs. ?transfer plans to another facility w/ urology Will review CT w/ Dr. Negrete. MADHURI REA Sep 01, 2019 11:08
--- NOTE | 2019-09-01 11:12 | PDOC ---
Infectious Disease Note Subjective Subjective pt cont to have abd pain ROS ROS nausea + Vital Sign Vital Signs Vital Signs Date Time Temp Pulse Resp B/P (MAP) Pulse Ox O2 Delivery O2 Flow Rate FiO2 09/01/19 07:56 98.1 103 16 156/87 (110) 97 Room Air 98.1 Physical Exam PHYSICAL EXAM GENERAL: Propped up in bed, alert, NAD HEENT: Oral cavity, pharynx, clear, poor dentition NECK: Supple. No JVD. LUNGS: Clear HEART: S1, S2. ABDOMEN: Mildly obese, soft, + BS, no guarding EXTREMITIES: No gross edema. SKIN: Warm to touch without signs of generalized rash. NEUROLOGICAL: Alert and appropriate. Labs Lab Laboratory Tests Test 08/31/19 11:28 08/31/19 16:15 08/31/19 20:46 09/01/19 07:28 Glucose (Fingerstick) 199 mg/dL (70-99) 235 mg/dL (70-99) 138 mg/dL (70-99) 156 mg/dL (70-99) Micro BC from here Microbiology 08/28/19 Blood Culture - Preliminary, Resulted NO GROWTH AFTER 1 DAY BC from [place], / viridans strep Objective Assessment Cystitis, likely has colovesical fistula, do not believe has empysematous cystitis Bacteremia, GPC in chains & gram positive diplococci from 08/24 ([facility] ID pending Abx allergies - PCN - Fonseca-Mati. Rocephin hypotension/syncope UTI - POA 08/24 at [facility] - Klebsiella (R amp) ? pancreatitis with lipase 656 - improved 08/25 Type 1 DM Poor dentition Plan Plan of Care CT noted, new rt sided hydronephrosis continue Levaquin F/u labs and cults Probiotics No longer have urology service BC results pending, pt has taken keflex without any problem in the past and feels comfortable taking D/w Dr. Mat MENON,QUINCY Deras MD Sep 01, 2019 11:12
[2019-09-01] MEDS ORDERED: LEVO500T59 PO (11:18)
[2019-09-01] MEDS ORDERED: OXYC5CAP PO (11:28)
[2019-09-01] MEDS: fentaNYL PF VIAL 100 MCG/2 ML VIAL IVP PRN (12:02)
[2019-09-01 13:12] LABS: HEMATOCRIT 35.2 % (36.0-47.0); HEMOGLOBIN 11.5 g/dL (12.0-15.5); RED BLOOD COUNT 3.97 x10^6/uL (3.50-5.40); WHITE BLOOD COUNT 11.6 x10^3/uL (4.0-11.0)
[2019-09-01 13:58] LABS: ALBUMIN 2.5 g/dL (3.4-5.0); ALBUMIN/GLOBULIN RATIO 0.6 (1.0-1.7); CALCIUM 8.7 mg/dL (8.5-10.1); CREATININE 0.6 mg/dL (0.6-1.0); GFR 111.3; POTASSIUM 3.4 mmol/L (3.5-5.1); TOTAL BILIRUBIN 0.2 mg/dL (0.2-1.0); TOTAL PROTEIN 6.4 g/dL (6.4-8.2)
[2019-09-01 15:00] VITALS: BP 168/96
[2019-09-01] MEDS ORDERED: HYDROmorphone 2 MG/ML VIAL IV PRN (15:15)
--- NOTE | 2019-09-01 15:45 | NUR ---
RANDY following pt. Spoke with RN, GI would like a transfer to another hospital. Confirmed this with Dr. Rivero. Plan 1. RANDY made inpatient transfer request at , phone: [phone], fax: [phone]. Clinicals faxed and Radiology to [facility]. RANDY provided machine carton marker with Physician and RN contact info. Acceptance pending.
[2019-09-01 19:10] VITALS: BP 165/86
[2019-09-01] MEDS: HYDROmorphone 2 MG/ML VIAL IV PRN ×2 (20:44→23:48)
[2019-09-01] MEDS: INSULIN GLARGINE SYRINGE. SQ SCH (21:18)
[2019-09-01 23:10] VITALS: BP 152/82
[2019-09-02] MEDS: ONDANSETRON PF 4 MG/2 ML VIAL. IVP PRN ×3 (02:48→15:55)
[2019-09-02] MEDS: HYDROmorphone 2 MG/ML VIAL IV PRN ×4 (02:48→15:07)
[2019-09-02] MEDS: diphenhydrAMINE 50 MG/ML VIAL IVP PRN ×3 (02:49→15:55)
[2019-09-02 03:10] VITALS: BP 143/80
[2019-09-02] MEDS ORDERED: PANTOPRAZOLE IV PUSH 40 MG VIAL. IVP SCH (07:30)
[2019-09-02 07:35] VITALS: BP 146/89
[2019-09-02] MEDS: INSULIN LISPRO 300 UNITS/3 ML VIAL. SQ SCH ×2 (08:00→12:00)
[2019-09-02] MEDS: LACTOBACILLUS RHAMNOSUS GG 1 CAPSULE. PO SCH (09:38)
--- NOTE | 2019-09-02 09:40 | PDOC ---
Subjective: Subjective: Feels the same - lower bad pain tracking to RUQ/right flank. Nausea, hasn't eaten anything today. 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 Objective: Vital Signs: Vital Signs Date Time Temp Pulse Resp B/P (MAP) Pulse Ox O2 Delivery O2 Flow Rate FiO2 09/02/19 07:35 97.7 96 18 146/89 (108) 95 Room Air 97.7 Labs: Laboratory Tests Test 09/01/19 11:08 09/01/19 13:05 09/01/19 17:13 09/01/19 20:49 Glucose (Fingerstick) 180 mg/dL 186 mg/dL 246 mg/dL White Blood Count 11.6 x10^3/uL Red Blood Count 3.97 x10^6/uL Hemoglobin 11.5 g/dL Hematocrit 35.2 % Mean Corpuscular Volume 89 fL Mean Corpuscular Hemoglobin 29 pg Mean Corpuscular Hemoglobin Concent 33 g/dL Red Cell Distribution Width 14.0 % Platelet Count 397 x10^3/uL Sodium Level 140 mmol/L Potassium Level 3.4 mmol/L Chloride Level 103 mmol/L Carbon Dioxide Level 27 mmol/L Anion Gap 10 Blood Urea Nitrogen 4 mg/dL Creatinine 0.6 mg/dL Estimated GFR (Cockcroft-Gault) 111.3 BUN/Creatinine Ratio 7 Glucose Level 217 mg/dL Calcium Level 8.7 mg/dL Total Bilirubin 0.2 mg/dL Aspartate Amino Transf (AST/SGOT) 40 U/L Alanine Aminotransferase (ALT/SGPT) 28 U/L Alkaline Phosphatase 138 U/L Total Protein 6.4 g/dL Albumin 2.5 g/dL Albumin/Globulin Ratio 0.6 Test 09/02/19 07:08 Glucose (Fingerstick) 146 mg/dL BLOOD CULTURE Preliminary NO GROWTH AFTER 4 DAYS PE: GEN: uncomfortable LUNGS: CTAB HEART: RRR ABD: suprapubic tenderness NEURO/PSYCH: A & O 3 A/P: Lower abd pain, n/v Bacteremia, UTI, leukocytosis, anemia Abnormal CT - gas in urinary bladder, right hydronephrosis and hydroureter, ascites, anasarca, small bilateral pleural effusions DM -- Difficult situation - ongoing symptoms, worsening findings on CT - no urology available here, now declined by both [facility] and [facility]. D/w Dr. Nguyễn - will try [facility] - also wondering if speaking to a colorectal surgeon would be helpful - will review w/ Dr. Negrete and follow-up w/ nurse. Nurse asks about advancing diet - as tolerated but careful w/ n/v. Transition to PO acid-grants and contracts assistant if tolerating PO. MADHURI REA Sep 02, 2019 09:40
--- NOTE | 2019-09-02 10:33 | PDOC ---
Infectious Disease Note Subjective Subjective pt cont to have abd pain ROS ROS no n/v/d/ Vital Sign Vital Signs Vital Signs Date Time Temp Pulse Resp B/P (MAP) Pulse Ox O2 Delivery O2 Flow Rate FiO2 09/02/19 07:35 97.7 96 18 146/89 (108) 95 Room Air 97.7 Physical Exam PHYSICAL EXAM GENERAL: Propped up in bed, alert, NAD HEENT: Oral cavity, pharynx, clear, poor dentition NECK: Supple. No JVD. LUNGS: Clear HEART: S1, S2. ABDOMEN: Mildly obese, soft, + BS, no guarding EXTREMITIES: No gross edema. SKIN: Warm to touch without signs of generalized rash. NEUROLOGICAL: Alert and appropriate. Labs Lab Laboratory Tests Test 09/01/19 11:08 09/01/19 13:05 09/01/19 17:13 09/01/19 20:49 Glucose (Fingerstick) 180 mg/dL (70-99) 186 mg/dL (70-99) 246 mg/dL (70-99) White Blood Count 11.6 x10^3/uL (4.0-11.0) Red Blood Count 3.97 x10^6/uL (3.50-5.40) Hemoglobin 11.5 g/dL (12.0-15.5) Hematocrit 35.2 % (36.0-47.0) Mean Corpuscular Volume 89 fL (79-100) Mean Corpuscular Hemoglobin 29 pg (25-35) Mean Corpuscular Hemoglobin Concent 33 g/dL (31-37) Red Cell Distribution Width 14.0 % (11.5-14.5) Platelet Count 397 x10^3/uL (140-400) Sodium Level 140 mmol/L (136-145) Potassium Level 3.4 mmol/L (3.5-5.1) Chloride Level 103 mmol/L (98-107) Carbon Dioxide Level 27 mmol/L (21-32) Anion Gap 10 (6-14) Blood Urea Nitrogen 4 mg/dL (7-20) Creatinine 0.6 mg/dL (0.6-1.0) Estimated GFR (Cockcroft-Gault) 111.3 BUN/Creatinine Ratio 7 (6-20) Glucose Level 217 mg/dL (70-99) Calcium Level 8.7 mg/dL (8.5-10.1) Total Bilirubin 0.2 mg/dL (0.2-1.0) Aspartate Amino Transf (AST/SGOT) 40 U/L (15-37) Alanine Aminotransferase (ALT/SGPT) 28 U/L (14-59) Alkaline Phosphatase 138 U/L (46-116) Total Protein 6.4 g/dL (6.4-8.2) Albumin 2.5 g/dL (3.4-5.0) Albumin/Globulin Ratio 0.6 (1.0-1.7) Test 09/02/19 07:08 Glucose (Fingerstick) 146 mg/dL (70-99) Micro BC from here Microbiology 08/28/19 Blood Culture - Preliminary, Resulted NO GROWTH AFTER 1 DAY BC from [place], / viridans strep Objective Assessment Cystitis, likely has colovesical fistula, do not believe has empysematous cystitis Bacteremia, GPC in chains & gram positive diplococci from 08/24 ([facility]). ID pending Abx allergies - PCN - Jad. Rocephin hypotension/syncope UTI - POA 08/24 at [facility] - Klebsiella (R amp) ? pancreatitis with lipase 656 - improved 08/25 Type 1 DM Poor dentition Plan Plan of Care CT noted, new rt sided hydronephrosis continue Levaquin F/u labs and cults Probiotics No longer have urology service BC results pending, pt has taken keflex without any problem in the past and feels comfortable taking D/w QUINCY Lr MD Sep 02, 2019 10:33
--- NOTE | 2019-09-02 11:34 | PN ---
DATE: 09/02/2019 SUBJECTIVE: The patient is resting, slightly propped up in bed, in no apparent distress. She continued to complain of nausea, but no vomiting. Her pain is much better controlled. She managed to eat yesterday and this morning and kept it in without any problem. PHYSICAL EXAMINATION: GENERAL: When I examined her this morning, she looked pale. No jaundice, cyanosis, or thyromegaly. No jugular venous distention. No limb edema. VITAL SIGNS: Her heart rate was 96, blood pressure was 146/89, temperature was 97.7, respiratory rate was 18, and oxygen saturation was 95%. HEAD, EYES, EARS, NOSE, THROAT: Showed normocephalic, atraumatic. NECK: Supple. HEART: Showed normal first and second heart sounds. No gallop or murmur. CHEST: Clear to auscultation. No crepitation or rhonchi. ABDOMEN: Distended, soft, nontender. No guarding or rigidity. No organomegaly. All hernial orifices intact. Bowel sounds normal. NEUROLOGIC: She was awake, alert, responding appropriately. All cranial nerves intact. She moves extremities without difficulty. She ambulates without assistance or assistive devices. Her intake was 1845, output was 1215. LABORATORY DATA: As of yesterday shows a white cell count 11,600, hemoglobin 11.5, hematocrit 35, MCV 89, and platelet count 397,000. Her chemistry showed a serum sodium 140, potassium 3.4, chloride 103, bicarbonate 27, anion gap of 10, BUN of 4, creatinine 0.6, estimated GFR was 111 mL per minute. Her glucose was 117. Calcium was 8.7. Total bilirubin, AST, ALT, alkaline phosphatase were normal. Total protein was 6.4, albumin 2.5. ASSESSMENT: 1. 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 2. Urinary tract infection, present on admission. Her cultures done at [facility] showed growth of more than 100,000 colony forming units per mL of Gram-negative rods, identified as Klebsiella pneumoniae. She also grew Gram-positive streptococci identified as viridans streptococci group. 3. Pancreatitis, has resolved. 4. Type 2 diabetes mellitus, seems to be reasonably controlled. 5. The patient developed severe pain and we did a CT scan of the abdomen and pelvis, which showed that the patient has right hydronephrosis and hydroureter, are new compared to the prior exam. Ureters were not opacified with contrast. No radiopaque calculus seen or delineated. Ascites and anasarca. She has small bilateral pleural effusion adjacent atelectasis. Gas within the urinary bladder correlates with history of fistula. Consider further evaluation with cystogram for more definitive assessment of the site of the fistula if needed. She has bilateral adnexal cystic structures are present, complex. Left adrenal cyst appears decreased in size and CT scan of the abdomen and pelvis without contrast, dated 07/14/2019. PLAN: I tried to transfer her to [facility] and was refused. She was also not accepted at [facility] and I contacted the transfer center at [facility] to see whether she can be accepted there. If not, she has only other option for her to be discharged and to make an appointment as an outpatient. HANY MILLER MD DR: SVETLANA/omar JOB#: [id number] / [id number]
[2019-09-02 11:45] VITALS: BP 149/85
[2019-09-02] MEDS: IV NORMAL SALINE 1000ML BAG 1,000 ML IV SCH (12:36)
[2019-09-02 15:09] VITALS: BP 176/90
--- NOTE | 2019-09-02 16:15 | NUR ---
Discharge Note: GLENIS KAUR [address] [place] [address] Discharge instructions and discharge home medications reviewed with Patient and a copy given. All questions have been answered and understanding verbalized. The following instructions and handouts were given: F/U with PCP within a week. Copies of CT scan and labs given to patient. Discontinued lines and drains: Peripheral IV intact. Patient discharged to Home or Self Care with Family Member via Wheelchair.
== END 2019-09-02 16:15 | disposition home or self-care (01) | DRG 698 ==
LOC: 6 SOUTH 18:30
PROVIDERS: ADMIT Internal Medicine; ATTEND Internal Medicine
DX: N32.1 Vesicointestinal fistula (principal); K85.90 Acute pancreatitis without necrosis or infection, unspecified; R78.81 Bacteremia; R18.8 Other ascites; J98.11 Atelectasis; N13.6 Pyonephrosis; N30.80 Other cystitis without hematuria; K21.9 Gastro-esophageal reflux disease without esophagitis; E10.9 Type 1 diabetes mellitus without complications; B96.1 Klebsiella pneumoniae [K. pneumoniae] as the cause of diseases classified elsewhere; J30.2 Other seasonal allergic rhinitis; I95.9 Hypotension, unspecified; D50.9 Iron deficiency anemia, unspecified; I10 Essential (primary) hypertension; N83.209 Unspecified ovarian cyst, unspecified side; Z87.440 Personal history of urinary (tract) infections; Z90.49 Acquired absence of other specified parts of digestive tract; Z90.710 Acquired absence of both cervix and uterus; Z88.0 Allergy status to penicillin; Z88.1 Allergy status to other antibiotic agents; Z88.5 Allergy status to narcotic agent; Z88.8 Allergy status to other drugs, medicaments and biological substances; Z82.49 Family history of ischemic heart disease and other diseases of the circulatory system; Z80.1 Family history of malignant neoplasm of trachea, bronchus and lung
CPT/HCPCS: 36415; 74177; 80048; 80053; 80202; 82607; 82962; 83540; 83550; 83690; 85025; 85027; 87040; C9113; J1170; J1200; J1815; J1956; J2405; J3010; J3370; J3490; J7030; J7040; J7050; Q9966; Q9967; G0378

== ENCOUNTER 2019-12-31 14:11 | Emergency (ER) | payer SELFPAY ==
[~2019-12-31] VITALS: Ht 165.1 cm; Wt 72.0 kg
[~2019-12-31 14:11] MED LIST: INSU100V13 SQ; LEVO500T59 PO; OXYC5CAP PO
--- NOTE | 2019-12-31 15:10 | PHYS DOC ---
Past Medical History Past Medical History: Diabetes-Type I, GERD, Seizure Additional Past Surgical Histo: UTERINE ABLATION Smoking Status: Never Smoker Alcohol Use: None Adult General Chief Complaint Chief Complaint: FLANK PAIN HPI HPI Patient is a 39 year old female who presents with urinary frequency, burning. Patient reports she has had urinary frequency for the last 3-4 days, has been worse. Also reports she has had some right flank pain. Denies fevers Also reports that she had no some blood clots and some air today. 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 States that after she finished her antibiotics last time, the air and discomfort went away. States she has been taking some ibuprofen at home, with no improvement states that she has been taking some Pyridium with no improvement states that she has been taking some Bactrim from a previous prescription with no improvement. Review of Systems Review of Systems Constitutional: Denies fever or chills [] Respiratory: Denies cough or shortness of breath [] Cardiovascular: No additional information not addressed in HPI [] GI: Reports abdominal pain, nausea, denies vomiting, bloody stools or diarrhea [] : Reports dysuria and hematuria and increased urinary frequency [] Musculoskeletal: Denies back pain or joint pain [] Integument: Denies rash or skin lesions [] Neurologic: Denies headache, focal weakness or sensory changes [] Endocrine: Denies polyuria or polydipsia [] All other systems were reviewed and found to be within normal limits, except as documented in this note. Current Medications Current Medications Current Medications Medications (Trade) Dose Ordered Sig/[facility] Start Time Stop Time Status Last Admin Dose Admin Ciprofloxacin/ Dextrose 200 ml @ 200 mls/hr 1X ONCE 12/31/19 16:15 12/31/19 17:14 DC 12/31/19 16:14 200 MLS/HR Fentanyl Citrate (Fentanyl 2ml Vial) 50 mcg 1X ONCE 12/31/19 16:15 12/31/19 16:16 DC 12/31/19 16:15 50 MCG Ondansetron HCl (Zofran) 4 mg STK-MED ONCE 12/31/19 15:12 12/31/19 15:13 DC Sodium Chloride 1,000 ml @ 1,000 mls/hr 1X ONCE 12/31/19 16:15 12/31/19 17:14 DC 12/31/19 16:12 1,000 MLS/HR Allergies Allergies Allergies Coded Allergies Type Severity Reaction Last Updated Verified 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 [] HENT: Normocephalic, atraumatic, bilateral external ears normal, oropharynx moist, no oral exudates, nose normal. [] Eyes: PERRLA, EOMI, conjunctiva normal, no discharge. [] Neck: Normal range of motion, no tenderness, supple, no stridor. [] Cardiovascular:Heart rate regular rhythm, no murmur [] Lungs & Thorax: Bilateral breath sounds clear to auscultation [] Abdomen: Bowel sounds normal, soft, lower abdominal tenderness, no masses, no pulsatile masses. [] Skin: Warm, dry, no erythema, no rash. [] Back: No tenderness, no CVA tenderness. [] Extremities: No tenderness, no cyanosis, no clubbing, ROM intact, no edema. [] Neurologic: Alert and oriented X 3, normal motor function, normal sensory function, no focal deficits noted. [] Psychologic: Affect normal, judgement normal, mood normal. [] Current Patient Data Vital Signs Vital Signs Date Time Temp Pulse Resp B/P (MAP) Pulse Ox O2 Delivery O2 Flow Rate FiO2 12/31/19 17:00 100 18 162/74 (103) 97 Room Air 12/31/19 14:21 98.9 98.9 Lab Values Laboratory Tests Test 12/31/19 14:35 12/31/19 14:55 Urine Collection Type Unknown Urine Color Yellow Urine Clarity Turbid Urine pH 5.5 Urine Specific [place] 1.025 Urine Protein >=300 mg/dL (NEG-TRACE) Urine Glucose (UA) 100 mg/dL (NEG) Urine Ketones (Stick) Negative mg/dL (NEG) Urine Blood Large (NEG) Urine Nitrite Negative (NEG) Urine Bilirubin Small (NEG) Urine Urobilinogen Dipstick 0.2 mg/dL (0.2 mg/dL) Urine Leukocyte Esterase Moderate (NEG) Urine RBC >40 /HPF (0-2) Urine WBC Tntc /HPF (0-4) Urine Bacteria Many /HPF (0-FEW) White Blood Count 11.6 x10^3/uL (4.0-11.0) H Red Blood Count 3.65 x10^6/uL (3.50-5.40) Hemoglobin 10.5 g/dL (12.0-15.5) L Hematocrit 30.8 % (36.0-47.0) L Mean Corpuscular Volume 84 fL (79-100) Mean Corpuscular Hemoglobin 29 pg (25-35) Mean Corpuscular Hemoglobin Concent 34 g/dL (31-37) Red Cell Distribution Width 14.7 % (11.5-14.5) H Platelet Count 542 x10^3/uL (140-400) H Neutrophils (%) (Auto) 72 % (31-73) Lymphocytes (%) (Auto) 19 % (24-48) L Monocytes (%) (Auto) 4 % (0-9) Eosinophils (%) (Auto) 4 % (0-3) H Basophils (%) (Auto) 1 % (0-3) Neutrophils # (Auto) 8.4 x10^3/uL (1.8-7.7) H Lymphocytes # (Auto) 2.2 x10^3/uL (1.0-4.8) Monocytes # (Auto) 0.5 x10^3/uL (0.0-1.1) Eosinophils # (Auto) 0.4 x10^3/uL (0.0-0.7) Basophils # (Auto) 0.1 x10^3/uL (0.0-0.2) Sodium Level 134 mmol/L (136-145) L Potassium Level 4.0 mmol/L (3.5-5.1) Chloride Level 97 mmol/L (98-107) L Carbon Dioxide Level 28 mmol/L (21-32) Anion Gap 9 (6-14) Blood Urea Nitrogen 15 mg/dL (7-20) Creatinine 1.0 mg/dL (0.6-1.0) Estimated GFR (Cockcroft-Gault) 61.7 BUN/Creatinine Ratio 15 (6-20) Glucose Level 214 mg/dL (70-99) H Calcium Level 9.0 mg/dL (8.5-10.1) Total Bilirubin 0.1 mg/dL (0.2-1.0) L Aspartate Amino Transferase (AST) 16 U/L (15-37) Alanine Aminotransferase (ALT) 17 U/L (14-59) Alkaline Phosphatase 166 U/L (46-116) H Total Protein 6.6 g/dL (6.4-8.2) Albumin 2.5 g/dL (3.4-5.0) L Albumin/Globulin Ratio 0.6 (1.0-1.7) L Amylase Level 36 U/L (25-115) Laboratory Tests 12/31/19 14:55 Laboratory Tests 12/31/19 14:55 EKG EKG [] Radiology/Procedures Radiology/Procedures FINDINGS: Heart size is normal. No pericardial effusion. Visualized lung bases are clear. No pleural effusion. Evaluation of the solid organs is limited secondary to noncontrast technique. Liver, spleen, pancreas and adrenals are unremarkable. There is mild bilateral hydronephrosis and perinephric stranding. No renal or ureteral calculi are identified. Bladder is partially distended and appears to have diffuse wall thickening. Numerous foci of air is noted within the bladder wall. Uterus is nonenlarged. No abnormal adnexal mass. Large and small bowel are unremarkable. Appendix is normal. No free intra-abdominal air. There is trace free fluid noted in the pelvis. Abdominal aorta has a normal course and caliber. No enlarged abdominal lymph nodes are identified. No suspicious osseous lesions or acute fractures. IMPRESSION: 1. Findings of emphysematous cystitis. 2. Mild bilateral hydronephrosis and perinephric stranding, may relate to a component of the ascending infection. Exposure: One or more of the following in the visualized dose reduction techniques were utilized for this examination: 1. Automated exposure control 2. Adjustment of the MA and/or KV according to patient size 3. Use of iterative of reconstructive technique Electronically signed by: Kimberly Howard MD (12/31/2019 4:19 PM) [id number][] Course & Med Decision Making Course & Med Decision Making Pertinent Labs and Imaging studies reviewed. (See chart for details) [] Dragon Disclaimer Dragon Disclaimer This electronic medical record was generated, in whole or in part, using a voice recognition dictation system. Departure Departure Impression: Primary Impression: Emphysematous cystitis Disposition: HOME, SELF-CARE Condition: STABLE Referrals: NO PCP (PCP) Patient Instructions: Urinary Tract Infection Additional Instructions: As we discussed, continue take the antibiotics as prescribed. Continue take ibu profen or Tylenol for discomfort. Make sure you are getting plenty fluids, rest. Try to find a primary care provider to manage your care nursing home. Scripts Ciprofloxacin Hcl (CIPRO) 500 Mg Tablet 500 MG PO BID for 10 Days, #20 TAB 0 Refills Prov: MIGUELANGEL ALVARADO APRN 12/31/19 MIGUELANGEL ALVARADO APRN Dec 31, 2019 15:10
[2019-12-31] MEDS ORDERED: ONDANSETRON PF 4 MG/2 ML VIAL. ONE (15:12)
[2019-12-31 15:13] LABS: BASO # 0.1 x10^3/uL (0.0-0.2); BASO % 1 % (0-3); EOS # 0.4 x10^3/uL (0.0-0.7); EOS % 4 % (0-3); HEMATOCRIT 30.8 % (36.0-47.0); HEMOGLOBIN 10.5 g/dL (12.0-15.5); LYMPH # 2.2 x10^3/uL (1.0-4.8); LYMPH % 19 % (24-48); MEAN CORPUSCULAR HEMOGLOBIN 29 pg (25-35); MEAN CORPUSCULAR HGB CONC 34 g/dL (31-37); MEAN CORPUSCULAR VOLUME 84 fL (79-100); MONO # 0.5 x10^3/uL (0.0-1.1); MONO % 4 % (0-9); NEUT # 8.4 x10^3/uL (1.8-7.7); NEUT % 72 % (31-73); PLATELET COUNT 542 x10^3/uL (140-400); RED BLOOD COUNT 3.65 x10^6/uL (3.50-5.40); RED CELL DISTRIBUTION WIDTH 14.7 % (11.5-14.5); WHITE BLOOD COUNT 11.6 x10^3/uL (4.0-11.0)
[2019-12-31] MEDS ORDERED: fentaNYL PF VIAL 100 MCG/2 ML VIAL ONE (15:13)
[2019-12-31 15:14] LABS: BILIRUBIN,URINE SMALL (NEG); CLARITY,URINE TURBID; NITRITE,URINE NEGATIVE (NEG); PH,URINE 5.5; PROTEIN,URINE >=300 mg/dL (NEG-TRACE); UROBILINOGEN,URINE 0.2 mg/dL (0.2 mg/dL)
[2019-12-31] MEDS ORDERED: IV NORMAL SALINE 1000ML BAG 1,000 ML IV ONE ×2 (15:15→16:15)
[2019-12-31] MEDS ORDERED: fentaNYL PF VIAL 100 MCG/2 ML VIAL IV ONE (15:15)
[2019-12-31] MEDS ORDERED: ONDANSETRON PF 4 MG/2 ML VIAL. IV ONE (15:15)
[2019-12-31 15:20] LABS: COLOR,URINE YELLOW
[2019-12-31 15:21] LABS: GFR 61.7
[2019-12-31 15:27] LABS: ALBUMIN 2.5 g/dL (3.4-5.0); ALBUMIN/GLOBULIN RATIO 0.6 (1.0-1.7); TOTAL BILIRUBIN 0.1 mg/dL (0.2-1.0); TOTAL PROTEIN 6.6 g/dL (6.4-8.2)
[2019-12-31 15:30] LABS: BACTERIA,URINE MANY /HPF (0-FEW); RBC,URINE >40 /HPF (0-2); WBC,URINE TNTC /HPF (0-4)
[2019-12-31] MEDS ORDERED: fentaNYL PF VIAL 100 MCG/2 ML VIAL IVP ONE (16:15)
[2019-12-31] MEDS ORDERED: CIPROFLOXACIN 400MG PREMIX 200 ML IV ONE (16:15)
--- NOTE | 2019-12-31 16:22 | RAD ---
Exam: CT abdomen and pelvis without contrast INDICATION: Abdominal pain TECHNIQUE: Sequential axial images through the abdomen and pelvis obtained without IV contrast. Sagittal and coronal reformatted images were reconstructed from the axial data and reviewed. Comparisons: 08/31/2019 FINDINGS: Heart size is normal. No pericardial effusion. Visualized lung bases are clear. No pleural effusion. Evaluation of the solid organs is limited secondary to noncontrast technique. Liver, spleen, pancreas and adrenals are unremarkable. There is mild bilateral hydronephrosis and perinephric stranding. No renal or ureteral calculi are identified. Bladder is partially distended and appears to have diffuse wall thickening. Numerous foci of air is noted within the bladder wall. Uterus is nonenlarged. No abnormal adnexal mass. Large and small bowel are unremarkable. Appendix is normal. No free intra-abdominal air. There is trace free fluid noted in the pelvis. Abdominal aorta has a normal course and caliber. No enlarged abdominal lymph nodes are identified. No suspicious osseous lesions or acute fractures. IMPRESSION: 1. Findings of emphysematous cystitis. 2. Mild bilateral hydronephrosis and perinephric stranding, may relate to a component of the ascending infection. Exposure: One or more of the following in the visualized dose reduction techniques were utilized for this examination: 1. Automated exposure control 2. Adjustment of the MA and/or KV according to patient size 3. Use of iterative of reconstructive technique Electronically signed by: Kimberly Howard MD (12/31/2019 4:19 PM) [id number]
[2019-12-31] MEDS ORDERED: CIPR500T94 PO (16:48)
[2019-12-31 17:00] VITALS: BP 162/74
== END 2019-12-31 17:38 | disposition home or self-care (01) ==
LOC: ER 14:11
DX: N30.81 Other cystitis with hematuria (principal); R35.0 Frequency of micturition; R30.0 Dysuria; E10.9 Type 1 diabetes mellitus without complications; K21.9 Gastro-esophageal reflux disease without esophagitis; Z98.890 Other specified postprocedural states; Z88.0 Allergy status to penicillin; Z88.6 Allergy status to analgesic agent; Z88.1 Allergy status to other antibiotic agents; Z88.8 Allergy status to other drugs, medicaments and biological substances; Z79.899 Other long term (current) drug therapy
CPT/HCPCS: 36415; 74176; 80053; 81001; 82150; 85025; 87086; 96365; 96375; 96376; 99284; J0744; J2405; J3010; J7030